=== PATIENT | female | born 1940 ===

== ENCOUNTER 2016-11-03 12:47 | Observation (INO) | payer MEDICARE, OTHER ==
[2016-11-03 12:47] VITALS: BMI 27.2
--- NOTE | 2016-11-03 13:11 | C.PDOC ---
History Of Present Illness Patient is a 76 year old female who presents to the ER with a complaint of near syncopal episodes for the past 3 weeks. Patient states she saw PMD 10 days ago for same complaint where she had various tests done but does not know the results or what the tests were. Patient decribes her dizziness as lightheadedness as if she was going to pass out. Patient reports a PMHx of vertigo but states this does not feel like a vertigo episode. Patient also reports a frontal/bilateral temporal headache. Denies SOB, chest pain, fever, stiff neck, falling, numbness, or weakness. Time Seen by Provider: 11/03/16 13:01 Chief Complaint (Nursing): Dizziness/Lightheaded History Per: Patient History/Exam Limitations: no limitations Onset/Duration Of Symptoms: Days (3 weeks) Current Symptoms Are (Timing): Still Present Past Medical History Reviewed: Historical Data, Nursing Documentation, Vital Signs Vital Signs: Last Vital Signs Temp 98.4 F 11/03/16 17:11 Pulse 90 11/03/16 17:11 Resp 20 11/03/16 17:11 BP 153/87 H 11/03/16 17:11 Pulse Ox 95 11/03/16 17:11 - Medical History PMH: Arthritis, CVA, HTN, Hypercholesterolemia Surgical History: No Surg Hx Family History: States: Unknown Family Hx - Social History Hx Alcohol Use: No Hx Substance Use: No Review Of Systems Constitutional: Negative for: Fever, Weakness ENT: Negative for: Other (Stiff Neck) Cardiovascular: Positive for: Light Headedness. Negative for: Chest Pain Respiratory: Negative for: Shortness of Breath Neurological: Positive for: Headache, Dizziness. Negative for: Weakness, Numbness Physical Exam - Physical Exam Additional Physical Exam Comments: Constitutional: No acute distress. Head: Normocephalic. Atraumatic. Eyes: PERRL. ENT: Moist mucous membranes. Neck: Supple. Cardiovascular: Regular rate. Radial pulse 2+ bilaterally. Chest: No tenderness. Respiratory: Clear to auscultation bilaterally. GI: Soft. Nontender. Nondistended. Back: No CVA tenderness. Musculoskeletal: No tenderness or swelling of extremities. Skin: No rash. Neurologic: Alert, no focal deficit. ED Course And Treatment - Laboratory Results Result Diagrams: 11/03/16 14:11 11/03/16 14:11 Interpretation Of ECG: No ST/T elevation. Normal intervals. O2 Sat by Pulse Oximetry: 98 (Room air) Medical Decision Making Medical Decision Making: Blood work, EKG, CXR, and CT of head w/o contrast ordered. EKG results: NSR, 99 bpm, no ST/T elevation, normal intervals. CT results: FINDINGS: HEMORRHAGE: No intracranial hemorrhage. BRAIN: Moderate to significant chronic appearing periventricular white matter chronic white matter ischemic changes extending peripherally into the deep and subcortical white matter both cerebral hemispheres. Changes are most conspicuous in the frontal regions. In addition, there is extension of these changes into the white matter tracts of both basal nuclei. Scattered more discrete bilateral basal nuclei lacunar type infarcts also felt to be present. Moderate generalized volume loss. Vascular calcifications are present VENTRICLES: No obstructive hydrocephalus CALVARIUM: Unremarkable. PARANASAL SINUSES: Minor mucosal thickening within the ethmoid air complex the MASTOID AIR CELLS: Unremarkable as visualized. No inflammatory changes. OTHER FINDINGS: None. IMPRESSION: No acute intracranial hemorrhage. Moderate to significant chronic white matter ischemic changes with scattered chronic bilateral basal nuclei lacunar infarcts Patient with UTI, started on Cipro by inpatient team. Dr. Funez accepts patient to his service for telemetry observation. Disposition Discussed With : Marcelo Funez Doctor Will See Patient In The: ED - Disposition Disposition: HOSPITALIZED Disposition Time: 15:22 Condition: FAIR - Clinical Impression Clinical Impression: Near syncope - Scribe Statement The provider has reviewed the documentation as recorded by the Scribe Pablo Armijo All medical record entries made by the Scribbaljeet were at my direction and personally dictated by me. I have reviewed the chart and agree that the record accurately reflects my personal performance of the history, physical exam, medical decision making, and the department course for this patient. I have also personally directed, reviewed, and agree with the discharge instructions and disposition.
[2016-11-03 14:13] LABS: RBC URINE 1 /hpf (0-3); URINE BACTERIA RARE (<OCC); URINE BILIRUBIN NEGATIVE (NEGATIVE); URINE BLOOD NEGATIVE (NEGATIVE); URINE COLOR Straw (YELLOW); URINE GLUCOSE (UA) NORMAL (Normal); URINE KETONE NEGATIVE (NEGATIVE); URINE LEUKOCYTE ESTERASE 3+ Leu/uL (Negative); URINE PROTEIN NEGATIVE (NEGATIVE); URINE UROBILINOGEN NORMAL mg/dL (0.2-1.0); WBC URINE 24 /hpf (0-5)
[2016-11-03 14:16] LABS: BASO % 0.3 % (0.0-2.0); EOS % 0.4 % (0.0-4.0); HEMATOCRIT 43.4 % (34.0-47.0); LYMPH # 2.4 K/uL (1.0-4.3); LYMPH % 29.2 % (20.0-40.0); MEAN CELL VOLUME 91.9 fL (81.0-99.0); MEAN CORPUSCULAR HEMOGLOBIN 31.2 pg (27.0-31.0); MEAN CORPUSCULAR HGB CONC 33.9 g/dL (33.0-37.0); MEAN PLATELET VOLUME 8.2 fL (7.2-11.7); MONO # 0.9 K/uL (0.0-0.8); MONO % 10.4 % (0.0-10.0); RED CELL DISTRIBUTION WIDTH 13.1 % (11.5-14.5); WHITE BLOOD COUNT 8.2 K/uL (4.8-10.8)
[2016-11-03 14:22] LABS: CHLORIDE 101 mmol/L (98-107)
[2016-11-03 14:23] LABS: SODIUM 141 mmol/L (132-148)
[2016-11-03 14:25] LABS: ALB/GLOB RATIO 1.3 (1.0-2.1); ALKALINE PHOSPHATASE 74 U/L (38-126); ALT/SGPT 33 U/L (9-52); AST/SGOT 40 U/L (14-36); BILIRUBIN,TOTAL 0.5 mg/dL (0.2-1.3); BLOOD UREA NITROGEN 14 mg/dL (7-17); CARBON DIOXIDE 24 mmol/L (22-30); GFR AFRICAN-AMERICAN > 60; GLUCOSE,RANDOM 101 mg/dL (65-105); TOTAL PROTEIN 8.2 g/dL (6.3-8.3)
[2016-11-03 14:29] LABS: INR 1.1
--- NOTE | 2016-11-03 15:19 | CT ---
PROCEDURE: CT HEAD WITHOUT CONTRAST. HISTORY: headache COMPARISON: None available. TECHNIQUE: Axial computed tomography images were obtained through the head/brain without intravenous contrast. Radiation dose: Total exam DLP = 746.29mGy-cm. This CT exam was performed using one or more of the following dose reduction techniques: Automated exposure control, adjustment of the mA and/or kV according to patient size, and/or use of iterative reconstruction technique. FINDINGS: HEMORRHAGE: No intracranial hemorrhage. BRAIN: Moderate to significant chronic appearing periventricular white matter chronic white matter ischemic changes extending peripherally into the deep and subcortical white matter both cerebral hemispheres. Changes are most conspicuous in the frontal regions. In addition, there is extension of these changes into the white matter tracts of both basal nuclei. Scattered more discrete bilateral basal nuclei lacunar type infarcts also felt to be present. Moderate generalized volume loss. Vascular calcifications are present VENTRICLES: No obstructive hydrocephalus CALVARIUM: Unremarkable. PARANASAL SINUSES: Minor mucosal thickening within the ethmoid air complex the MASTOID AIR CELLS: Unremarkable as visualized. No inflammatory changes. OTHER FINDINGS: None. IMPRESSION: No acute intracranial hemorrhage. Moderate to significant chronic white matter ischemic changes with scattered chronic bilateral basal nuclei lacunar infarcts
--- NOTE | 2016-11-03 17:40 | RAD ---
HISTORY: near syncope COMPARISON: No prior. FINDINGS: LUNGS: Mild elevation right hemidiaphragm with mild right basilar atelectasis. Minimal left basilar atelectasis PLEURA: No significant pleural effusion identified, no pneumothorax apparent. CARDIOVASCULAR: Cardiomegaly. Ectatic uncoiled aorta OSSEOUS STRUCTURES: Degenerative changes both shoulder girdles VISUALIZED UPPER ABDOMEN: Normal. OTHER FINDINGS: None. IMPRESSION: Mild elevation right hemidiaphragm with mild right basilar atelectasis. Minimal left basilar atelectasis
[2016-11-03] MEDS ORDERED: Naphazoline-Pheniramine Ophth Soln OU PRN (22:00)
[2016-11-04 08:15] LABS: CHLORIDE 98 mmol/L (98-107); SODIUM 142 mmol/L (132-148)
[2016-11-04 08:16] LABS: POTASSIUM 4.4 mmol/L (3.6-5.2)
[2016-11-04 08:18] LABS: BLOOD UREA NITROGEN 17 mg/dL (7-17); CARBON DIOXIDE 28 mmol/L (22-30); CHOLESTEROL 187 mg/dL (0-199); GFR AFRICAN-AMERICAN > 60
[2016-11-04 08:19] LABS: GLUCOSE,RANDOM 106 mg/dL (65-105)
[2016-11-04 08:38] LABS: FREE T4 1.15 ng/dL (0.78-2.19)
[2016-11-04 08:52] LABS: THYROID STIMULATING HORMONE 0.24 mIU/L (0.46-4.68)
[2016-11-04] MEDS: Pantoprazole 40 mg EC Tab PO SCH (10:02)
[2016-11-04] MEDS: Multiple Vitamins Tab PO SCH (10:02)
[2016-11-04] MEDS: Enoxaparin 40 mg Syringe SC SCH (10:08)
--- NOTE | 2016-11-04 14:05 | CON ---
DATE: 11/04/2016 REASON FOR CONSULTATION: Dizziness. The patient is a 76-year-old female who has history of hypertension, history of 4 strokes in the past, the last one was 2 years ago according to the patient. The history was obtained via the omer lynn's daughter who interpreted the patient's complaints. The patient following the 4 strokes had no residual weakness or speech difficulty. The patient is unaware of any history of heart attack in the past. The patient has been experiencing dizziness for a few weeks, at times associated with palp itations. The patient denies any syncope or fall. The patient denies any retrosternal chest pain. SOCIAL HISTORY: Nonsmoker, nondrinker. MEDICATIONS: Antivert 25 mg q. 8 hours, aspirin 325 mg once a day, Cipro 250 mg twice a day, Cozaar 100 mg once a day, Crestor 20 mg once a day, hydrochlorothiazide 25 mg once a day, Lovenox 40 mg once a day, Norvasc 10 mg once a day, Protonix 40 mg once a day, Tenormin 50 mg daily. REVIEW OF SYSTEMS: No fever or chills. No vomiting or diarrhea. No chest pain. No productive coug h. PHYSICAL EXAMINATION: GENERAL: The patient is an elderly female who appears to be in good shape. VITAL SIGNS: Blood pressure 120/77, heart rate 87, temperature 98.2, respiration 18. HEENT: Normocephalic. NECK: No JVD. CHEST: Clear. HEART: S1, S2 regular. ABDOMEN: Soft. EXTREMITIES: No edema. LABORATORIES: On admission, SMA-7 is within normal limits. Two sets of troponins are negative. Tri glycerides are elevated at 165. The rest of the lipid profile is within normal limits. TSH level is below normal at 0.24. PT, PTT are within normal limits. Head CT scan without contrast: No acute intracranial hemorrhage, moderate to significant chronic whi te matter ischemic changes with scattered chronic bilateral basilar nuclei lacunar infarcts. EKG rev ealed sinus rhythm at rate of 99, cannot rule out old anterior wall myocardial infarction. ASSESSMENT: 1. Dizziness. 2. Occasional palpitation. 3. Hypertension. 4. History of multiple cerebrovascular accidents. 5. Hyperlipidemia. RECOMMENDATIONS: Continue aspirin 325 mg once a day, Cozaar at 100 mg once a day, subcutaneous Loven ox at 40 mg once a day, Norvasc at 10 mg once a day, Tenormin at 50 mg once a day. May discontinue h ydrochlorothiazide as dizziness is one of the side effects of hydrochlorothiazide. Obtain an echocar diogram and carotid Doppler. Continue telemetry monitoring. Anish Verde MD cc: [id number] TT: 11/04/2016 14:05:02 Confirmation # [id number] Dictation # [id number] en
--- NOTE | 2016-11-04 23:17 | CP.PCM.HP ---
History of Present Illness - History of Present Illness History of Present Illness: Manas complain: dizziness x 3 weeks HPI: Patient is a 76 year old female who presents to the ER with a complaint of near syncopal episodes for the past 3 weeks. Patient states she saw PMD 10 days ago for same complaint where she had various tests done but does not know the results or what the tests were. Patient decribes her dizziness as lightheadedness as if she was going to pass out. Patient reports a PMHx of vertigo but states this does not feel like a vertigo episode. Patient also reports a frontal/bilateral temporal headache. Denies SOB, chest pain, fever, stiff neck, falling, numbness, or weakness Present on Admission - Present on Admission Any Indicators Present on Admission: No Review of Systems - Review of Systems Systems not reviewed;Unavailable: Acuity of Condition - Constitutional Constitutional: Fatigue, Lethargy, Weakness. absent: As Per HPI, Anorexia, Chills, Daytime Sleepiness, Excessive Sweating, Fever, Frequent Falls, Headache , Increased Appetite, Malaise, Night Sweats, Snoring, Sleep Apnea, Weight Gain, Weight Loss, Other - EENT Eyes: absent: As Per HPI, Blind Spots, Blurred Vision, Change in Vision, Decreased Night Vision, Diplopia, Discharge, Dry Eye, Exophthalmos, Floaters, Irritation, Itchy Eyes, Loss of Peripheral Vision, Pain, Photophobia, Requires Corrective Lenses, Sees Flashes, Spots in Vision, Tunnel Vision, Other Visual Disturbances, Loss of Vision, Other Nose/Mouth/Throat: absent: As Per HPI, Epistaxis, Nasal Congestion, Nasal Discharge, Nasal Obstruction, Nasal Trauma, Nose Pain, Post Nasal Drip, Sinus Pain, Sinus Pressure, Bleeding Gums, Change in Voice, Dental Pain, Dry Mouth, Dysphagia, Halitosis, Hoarsness, Lip Swelling, Mouth Lesions, Mouth Pain, Odynophagia, Sore Throat, Throat Swelling, Tongue Swelling, Facial Pain, Neck Pain, Neck Mass, Other - Cardiovascular Cardiovascular: absent: As Per HPI, Acrocyanosis, Chest Pain, Chest Pain at Rest , Chest Pain with Activity, Claudication, Diaphoresis, Dyspnea, Dyspnea on Exertion, Edema, Irregular Heart Rhythm, Pain Radiating to Arm/Neck/Jaw, Leg Edema, Leg Ulcers, Lightheadedness, Orthopnea, Palpitations, Paroxysmal Nocturnal Dyspnea, Pedal Edema, Radiating Pain, Rapid Heart Rate, Slow Heart Rate, Syncope, Other - Respiratory Respiratory: absent: As Per HPI, Cough, Dyspnea, Hemoptysis, Dyspnea on Exertion , Wheezing, Snoring, Stridor, Pain on Inspiration, Chest Congestion, Excessive Mucous Production, Change in Mucous Color, Pain with Coughing, Other - Gastrointestinal Gastrointestinal: absent: As Per HPI, Abdominal Pain, Belching, Bloating, Change in Bowel Habits, Change in Stool Character, Coffee Ground Emesis, Constipation, Cramping, Diarrhea, Dyspepsia, Dysphagia, Early Satiety, Excessive Flatus, Fecal Incontinence, Heartburn, Hematemesis, Hematochezia, Loose Stools, Melena, Nausea, Odynophagia, Temesmus, Vomiting, Other - Genitourinary Genitourinary: Urinary Frequency - Musculoskeletal Musculoskeletal: Muscle Weakness - Integumentary Integumentary: absent: As Per HPI, Acne, Alopecia, Bleeding Lesions, Change in Hair, Change in Nails, Change in Pigmentation, Changing Lesions, Dry Skin, Erythema, Furuncle, Hirsutism, Lesions, New Lesions, Non-Healing Lesions, Photosensitivity, Pruritus, Rash, Skin Pain, Skin Ulcer, Sores, Striae, Swelling , Unusual Bruising, Wounds, Jaundice, Other - Neurological Neurological: Dizziness. absent: As Per HPI, Abnormal Gait, Abnormal Hearing, Abnormal Movements, Abnormal Speech, Behavioral Changes, Burning Sensations, Confusion, Convulsions, Disequilibrium, Numbness, Focal Weakness, Frequent Falls , Headaches, Lack of Coordination, Loss of Vision, Memory Loss, Paresthesias, Radicular Pain, Restless Legs, Sensory Deficit, Syncope, Tingling, Tremor, Vertigo, Weakness, Other Visual Disturbances, Other Past Patient History - Infectious Disease Hx of Infectious Diseases: None - Past Medical History & Family History Past Medical History?: Yes - Past Social History Smoking Status: Never Smoked - CARDIAC Hx Hypercholesterolemia: Yes Hx Hypertension: Yes - PULMONARY Hx Respiratory Disorders: No - NEUROLOGICAL Hx Vertigo: Yes - HEENT Hx HEENT Problems: Yes Hx Cataracts: Yes (3yrs ago) Hx Glaucoma: Yes (3yrs ago) - RENAL Hx Chronic Kidney Disease: No - ENDOCRINE/METABOLIC Hx Endocrine Disorders: No - HEMATOLOGICAL/ONCOLOGICAL Hx Blood Disorders: No - INTEGUMENTARY Hx Dermatological Problems: No - MUSCULOSKELETAL/RHEUMATOLOGICAL Hx Arthritis: Yes - GASTROINTESTINAL Hx Gastrointestinal Disorders: No - GENITOURINARY/GYNECOLOGICAL Hx Genitourinary Disorders: No - PSYCHIATRIC Hx Substance Use: No - SURGICAL HISTORY Hx Surgeries: Yes Hx Appendectomy: Yes Hx Cataract Extraction: Yes Hx Cholecystectomy: Yes Hx Eye Surgery: Yes (bilateral eye) Hx Hysterectomy: Yes - ANESTHESIA Hx Anesthesia: Yes Hx Anesthesia Reactions: No Hx Malignant Hyperthermia: No Has any member of the family had a problem w/ anesthesia?: No Meds Home Medications: Home Medication List Medication Instructions Recorded Confirmed Type Aspirin 325 mg PO DAILY tab 11/06/16 Rx Losartan [Cozaar] 100 mg PO DAILY #30 tab 11/06/16 Rx Multivitamins [Hexavitamin] 1 tab PO DAILY tab 11/06/16 Rx amLODIPine [Norvasc] 10 mg PO DAILY tab 11/06/16 Rx Allergies/Adverse Reactions: Allergies Allergy/AdvReac Type Severity Reaction Status Date / Time No Known Allergies Allergy Verified 11/03/16 12:51 Physical Exam - Constitutional Appears: No Acute Distress - Head Exam Head Exam: ATRAUMATIC, NORMAL INSPECTION, NORMOCEPHALIC - Eye Exam Eye Exam: EOMI, Normal appearance, PERRL Pupil Exam: NORMAL ACCOMODATION, PERRL - ENT Exam ENT Exam: Mucous Membranes Moist, Normal Exam - Respiratory Exam Respiratory Exam: Clear to Auscultation Bilateral, NORMAL BREATHING PATTERN - Cardiovascular Exam Cardiovascular Exam: REGULAR RHYTHM, +S1, +S2 - GI/Abdominal Exam GI & Abdominal Exam: Normal Bowel Sounds, Soft. absent: Tenderness - Neurological Exam Neurological exam: Alert, CN II-XII Intact, Normal Gait, Oriented x3, Reflexes Normal - Psychiatric Exam Psychiatric exam: Normal Affect, Normal Mood Results - Vital Signs Recent Vital Signs: Last Vital Signs Temp 98.1 F 11/04/16 15:44 Pulse 63 11/04/16 16:27 Resp 18 11/04/16 15:44 BP 115/69 11/04/16 15:44 Pulse Ox 95 11/04/16 15:44 - Labs Result Diagrams: 11/03/16 14:11 11/04/16 07:56 Assessment & Plan (1) Dizziness Status: Acute (2) Dehydration Status: Acute (3) Near syncope Status: Acute (4) UTI (urinary tract infection) Status: Acute
--- NOTE | 2016-11-04 23:21 | CP.PCM.PN ---
Subjective - Date & Time of Evaluation Date of Evaluation: 11/04/16 Time of Evaluation: 09:53 - Subjective Subjective: Patient is seen and examined, Ct scan was done no acute changes, headache is there on and off. Denies SOB, chest pain, fever, stiff neck, falling, numbness, or weakness Objective - Vital Signs/Intake and Output Vital Signs (last 24 hours): Temp Pulse Resp BP Pulse Ox 98.1 F 63 18 115/69 95 11/04/16 15:44 11/04/16 16:27 11/04/16 15:44 11/04/16 15:44 11/04/16 15:44 Intake and Output: 11/04/16 11/05/16 18:59 06:59 Intake Total 400 Balance 400 - Medications Medications: Current Medications Amlodipine Besylate (Norvasc) 10 mg PO DAILY [facility] Last Admin: 11/04/16 11:00 Dose: 10 mg Aspirin (Aspirin) 325 mg PO DAILY [facility] Last Admin: 11/04/16 10:02 Dose: 325 mg Atenolol (Tenormin) 50 mg PO DAILY [facility] Last Admin: 11/04/16 10:00 Dose: 50 mg Ciprofloxacin (Cipro) 250 mg PO BID [facility] Last Admin: 11/04/16 17:04 Dose: 250 mg Enoxaparin Sodium (Lovenox) 40 mg SC DAILY [facility] Last Admin: 11/04/16 10:08 Dose: 40 mg Losartan Potassium (Cozaar) 100 mg PO DAILY [facility] Last Admin: 11/04/16 10:00 Dose: 100 mg Meclizine HCl (Antivert) 25 mg PO Q8 PRN PRN Reason: Dizziness Last Admin: 11/04/16 12:20 Dose: 25 mg Multivitamins (Hexavitamin) 1 tab PO DAILY [facility] Last Admin: 11/04/16 10:02 Dose: 1 tab Naphazoline HCl/Pheniramine Maleate (Naphcon-A Opht) 0 ml OU QID PRN PRN Reason: Dry eyes Pantoprazole Sodium (Protonix Ec Tab) 40 mg PO DAILY [facility] Last Admin: 11/04/16 10:02 Dose: 40 mg Rosuvastatin Calcium (Crestor) 20 mg PO HS [facility] Last Admin: 11/04/16 21:08 Dose: 20 mg - Labs Labs: PT 12.2 SECONDS (9.7-12.2) 11/03/16 14:11 INR 1.1 11/03/16 14:11 APTT 30 SECONDS (21-34) 11/03/16 14:11 - Constitutional Appears: No Acute Distress, Chronically Ill - Head Exam Head Exam: ATRAUMATIC, NORMAL INSPECTION, NORMOCEPHALIC - Eye Exam Eye Exam: EOMI, Normal appearance, PERRL Pupil Exam: NORMAL ACCOMODATION, PERRL - Respiratory Exam Respiratory Exam: Clear to Ausculation Bilateral, NORMAL BREATHING PATTERN - Cardiovascular Exam Cardiovascular Exam: REGULAR RHYTHM, +S1, +S2. absent: Murmur - GI/Abdominal Exam GI & Abdominal Exam: Soft, Normal Bowel Sounds. absent: Tenderness - Neurological Exam Neurological Exam: Alert, Awake, CN II-XII Intact, Normal Gait, Oriented x3 Assessment and Plan (1) Dizziness Status: Acute (2) Dehydration Status: Acute (3) Near syncope Status: Acute (4) UTI (urinary tract infection) Status: Acute
--- NOTE | 2016-11-05 10:01 | CARD ---
APPROVED REPORT EXAM: Two-dimensional and M-mode echocardiogram with Doppler and color Doppler. Other Information Quality : Technically LimitedRhythm : NSR INDICATION Dizziness and Vertigo Syncope RISK FACTORS Hypertension Hyperlipidemia M-Mode DIMENSIONS RVDd1.22 (2.1-3.2cm)Left Atrium (MM)2.66 (2.5-4.0cm) IVSd0.74 (0.7-1.1cm)Aortic Root2.43 (2.2-3.7cm) LVDd4.09 (4.0-5.6cm)Aortic Cusp Exc.1.25 (1.5-2.0cm) PWd0.70 (0.7-1.1cm)FS (%) 23 % LVDs3.13 (2.0-3.8cm)LVEF (%)55 (>50%) Aortic Valve AoV Peak Tsiwjshl583.9cm/Dafne Peak GR.10mmHgAI P 1/2 [id number] Mitral Valve MV E Rgplhhjc74.9cm/sMV A Jgrejutm857.6cm/sE/A ratio0.5 TDI E/Lateral E'0.0E/Medial E'0.0 Tricuspid Valve TR Peak Wxoskduy621cg/sTR Peak Gr.[id number] LEFT VENTRICLE The left ventricle is normal size. There is normal left ventricular wall thickness. The left ventricular function is normal. The left ventricular ejection fraction is within the normal range. There is normal LV segmental wall motion. Transmitral Doppler flow pattern is Grade I-abnormal relaxation pattern. RIGHT VENTRICLE The right ventricle is normal size. There is normal right ventricular wall thickness. The right ventricular systolic function is normal. ATRIA The left atrium size is normal. The right atrium size is normal. AORTIC VALVE The aortic valve is mildly thickened. There is mild aortic regurgitation. MITRAL VALVE The mitral valve is mildly thickened. TRICUSPID VALVE There is mild pulmonary hypertension. GREAT VESSELS The aortic root is normal in size. The IVC is normal in size and collapses >50% with inspiration. PERICARDIAL EFFUSION There is a trace loculated anterior pericardial effusion. <Conclusion> The left ventricle is normal size. There is normal left ventricular wall thickness. The left ventricular function is normal. The left ventricular ejection fraction is within the normal range. There is normal LV segmental wall motion. Transmitral Doppler flow pattern is Grade I-abnormal relaxation pattern. There is mild aortic regurgitation. There is mild pulmonary hypertension.
[2016-11-05] MEDS: Pantoprazole 40 mg EC Tab PO SCH (10:25)
[2016-11-05] MEDS: Multiple Vitamins Tab PO SCH (10:25)
[2016-11-05] MEDS: Enoxaparin 40 mg Syringe SC SCH (10:26)
--- NOTE | 2016-11-05 10:32 | PN ---
DATE: 11/05/2016 The patient denies any dizziness or palpitation. No reported arrhythmia. PHYSICAL EXAMINATION: VITAL SIGNS: Blood pressure 149/93, heart rate 93, temperature 97.7, respirations 20. HEENT: Normocephalic. NECK: No JVD. CHEST: Clear. HEART: S1, S2 regular. EXTREMITIES: No edema. Echocardiograph study revealed normal left ventricular size, wall thickness and ejection fraction, mi ld aortic insufficiency and mild pulmonary hypertension. ASSESSMENT: 1. Dizziness. 2. Recurrent cerebrovascular accident in the past, most recent one was 2 years ago. 3. Mild aortic insufficiency. 4. Mild pulmonary hypertension. 5. Uncontrolled systemic hypertension. RECOMMENDATIONS: Continue Norvasc at 10 mg once a day, Tenormin at 50 mg once a day, Cozaar at 100 m g once a day, aspirin at 325 mg once a day, Crestor at 20 mg once a day. Awaiting carotid Doppler. Anish Verde MD cc: [id number] TT: 11/05/2016 10:31:44 Confirmation # [id number] Dictation # [id number] en
--- NOTE | 2016-11-05 12:41 | MRI ---
PROCEDURE: MRI BRAIN WITHOUT CONTRAST HISTORY: syncope COMPARISON: Comparison is made to the previous CT of the head dated 11/03/2016 TECHNIQUE: Multiplanar, multisequence MR images of the brain were obtained without intravenous contrast enhancement. FINDINGS: HEMORRHAGE: None DWI: No evidence of an acute or early subacute infarction. BRAIN PARENCHYMA: There are scattered foci of encephalomalacia in the basal ganglia/stafford radiata suggestive of old small infarct. Gpno-tn-pqjvveib atrophy and moderate chronic microvascular white matter ischemic disease are also noted. VENTRICLES: Unremarkable. No hydrocephalus. CRANIUM: Unremarkable. ORBITS: Grossly unremarkable. PARANASAL SINUSES/MASTOIDS: Clear VASCULAR SYSTEM: Skull base flow voids intact. OTHER FINDINGS: None. IMPRESSION: No evidence of acute infarct or acute pathology in the brain. Small foci of encephalomalacia at the basal ganglia and stafford radiata likely due to old lacunar infarcts. Moderate atrophy and moderate chronic microvascular ischemic disease.
--- NOTE | 2016-11-05 14:45 | VASCLAB ---
PROCEDURE: HISTORY: syncope COMPARISON: None available. TECHNIQUE: Grayscale and duplex Doppler evaluation of the cervical carotid and vertebral arteries were performed. The common carotid, carotid bifurcations and cervical Internal Carotid Artery (ICA) and proximal External Carotid Artery (ECA) were evaluated. The vertebral arteries were evaluated for gross patency and flow direction. Report prepared by YOMI Flowers FINDINGS: RIGHT CAROTID ARTERIES: 1. Common Carotid Artery: No significant focal plaque formation of the right common carotid artery. Maximum Peak Systolic velocity: 66 cm/sec: End-diastolic velocity 16 cm/sec. 2. Carotid Bifurcation: Minimal calcific plaque formation. Maximum Peak Systolic velocity: 38 cm/sec: End-diastolic velocity 8 cm/sec. 3. Internal Carotid Artery: Plaque description: Minimal calcific 3.1. Proximal Segment: Peak systolic velocity 47 cm/sec: End-diastolic velocity 14 cm/sec - % stenosis 0-15% 3.2. Middle Segment: Peak systolic velocity 51 cm/sec: End-diastolic velocity 16 cm/sec - % stenosis 0-15% 3.3. Distal Segment: Peak systolic velocity 53 cm/sec: End-diastolic velocity 13 cm/sec - % stenosis 0-15% 4. External Carotid Artery: No significant focal plaque formation. Peak systolic velocity 74 cm/sec 5. ICA/CCA Ratio: 1.2 LEFT CAROTID ARTERIES: 1. Common Carotid Artery: No significant focal plaque formation of the left common carotid artery. Maximum Peak Systolic velocity: 60 cm/sec: End-diastolic velocity 14 cm/sec. 2. Carotid Bifurcation: Minimal calcific plaque formation. Maximum Peak Systolic velocity: 46 cm/sec: End-diastolic velocity 12 cm/sec. 3. Internal Carotid Artery: Plaque description: Minimal calcific 3.1. Proximal Segment: Peak systolic velocity 43 cm/sec: End-diastolic velocity 13 cm/sec - % stenosis 0-15% 3.2. Middle Segment: Peak systolic velocity 58 cm/sec: End-diastolic velocity 19 cm/sec - % stenosis 0-15% 3.3. Distal Segment: Peak systolic velocity 48 cm/sec: End-diastolic velocity 18 cm/sec - % stenosis 0-15% 4. External Carotid Artery: No significant focal plaque formation. Peak systolic velocity 46 cm/sec 5. ICA/CCA Ratio: 1.3 VERTEBRAL ARTERIES: 1. Right Vertebral Artery: The right vertebral artery flow direction is antegrade. 2. Left Vertebral Artery: The left vertebral artery flow direction is antegrade. OTHER FINDINGS: 1. Right Brachial Blood pressure: 150 mmHg. 2. Left Brachial Blood pressure: 140 mmHg. IMPRESSION: RIGHT: Duplex scan does not suggest hemodynamically significant stenosis of the right extracranial carotid arteries. LEFT: Duplex scan does not suggest hemodynamically significant stenosis of the left extracranial carotid arteries.
--- NOTE | 2016-11-05 18:08 | CARD ---
APPROVED REPORT EKG Measurement Heart [id number] <Conclusion> Normal sinus rhythm Minimal voltage criteria for LVH, may be normal variant Cannot rule out Anterior infarct, age undetermined Abnormal ECG
--- NOTE | 2016-11-06 00:29 | CP.PCM.PN ---
Subjective - Date & Time of Evaluation Date of Evaluation: 11/05/16 Time of Evaluation: 09:55 - Subjective Subjective: Pt seen and evaluated, less dizzy, feels better, occasinal nausea, pending neuro consult Objective - Vital Signs/Intake and Output Vital Signs (last 24 hours): Temp Pulse Resp BP Pulse Ox 98.1 F 65 18 132/77 98 11/05/16 15:24 11/05/16 15:40 11/05/16 15:24 11/05/16 15:24 11/05/16 15:24 Intake and Output: 11/05/16 11/06/16 18:59 06:59 Intake Total 500 Balance 500 - Medications Medications: Current Medications Amlodipine Besylate (Norvasc) 10 mg PO DAILY [facility] Last Admin: 11/05/16 10:25 Dose: 10 mg Aspirin (Aspirin) 325 mg PO DAILY [facility] Last Admin: 11/05/16 10:25 Dose: 325 mg Atenolol (Tenormin) 50 mg PO DAILY [facility] Last Admin: 11/05/16 10:25 Dose: 50 mg Ciprofloxacin (Cipro) 250 mg PO BID [facility] Last Admin: 11/05/16 17:26 Dose: 250 mg Enoxaparin Sodium (Lovenox) 40 mg SC DAILY [facility] Last Admin: 11/05/16 10:26 Dose: 40 mg Losartan Potassium (Cozaar) 100 mg PO DAILY [facility] Last Admin: 11/05/16 10:25 Dose: 100 mg Meclizine HCl (Antivert) 25 mg PO Q8 PRN PRN Reason: Dizziness Last Admin: 11/04/16 12:20 Dose: 25 mg Multivitamins (Hexavitamin) 1 tab PO DAILY [facility] Last Admin: 11/05/16 10:25 Dose: 1 tab Naphazoline HCl/Pheniramine Maleate (Naphcon-A Opht) 0 ml OU QID PRN PRN Reason: Dry eyes Pantoprazole Sodium (Protonix Ec Tab) 40 mg PO DAILY [facility] Last Admin: 11/05/16 10:25 Dose: 40 mg Rosuvastatin Calcium (Crestor) 20 mg PO HS [facility] Last Admin: 11/05/16 21:28 Dose: 20 mg - Labs Labs: PT 12.2 SECONDS (9.7-12.2) 11/03/16 14:11 INR 1.1 11/03/16 14:11 APTT 30 SECONDS (21-34) 11/03/16 14:11 - Constitutional Appears: Well - Head Exam Head Exam: ATRAUMATIC, NORMAL INSPECTION, NORMOCEPHALIC - Eye Exam Eye Exam: EOMI, Normal appearance, PERRL Pupil Exam: NORMAL ACCOMODATION, PERRL - Respiratory Exam Respiratory Exam: Clear to Ausculation Bilateral, NORMAL BREATHING PATTERN - Cardiovascular Exam Cardiovascular Exam: REGULAR RHYTHM, +S1, +S2. absent: Murmur - GI/Abdominal Exam GI & Abdominal Exam: Soft, Normal Bowel Sounds. absent: Tenderness - Neurological Exam Neurological Exam: Abnormal Gait, Alert, Awake, Oriented x3 Assessment and Plan (1) Dizziness Status: Acute (2) Dehydration Status: Acute (3) Near syncope Status: Acute (4) UTI (urinary tract infection) Status: Acute (5) Vertigo Assessment & Plan: most likely BPVV waiat neuro consult Status: Acute
[2016-11-06 01:12] VITALS: RESP 20
[2016-11-06] MEDS: Enoxaparin 40 mg Syringe SC SCH (09:35)
[2016-11-06] MEDS: Multiple Vitamins Tab PO SCH (09:35)
[2016-11-06] MEDS: Pantoprazole 40 mg EC Tab PO SCH (09:36)
--- NOTE | 2016-11-06 14:49 | PN ---
DATE: 11/06/2016 SUBJECTIVE: The patient denies any dizziness or palpitation. PHYSICAL EXAMINATION: VITAL SIGNS: Blood pressure 134/87, heart rate 98, temperature 97.5, respirations 20. HEENT: Normocephalic. NECK: No JVD. CHEST: Clear. HEART: S1, S2 regular. ABDOMEN: Soft. EXTREMITIES: No edema. LABORATORIES: Brain MRI report revealed no evidence of acute infarction or acute pathology, small fo ci of encephalomalacia at the basal ganglia and stafford radiata likely due to old lacunar infarcts. E chocardiographic study revealed normal left ventricular size, wall thickness, and ejection fraction, mild aortic insufficiency and mild pulmonary hypertension. ASSESSMENT: 1. Dizziness. 2. History of multiple lacunar infarcts in the past, most recent one according to the patient was 2 years ago. 3. Mild aortic insufficiency. 4. Mild pulmonary hypertension 5. Hypertension. RECOMMENDATIONS: Continue atenolol at 50 mg once a day, Norvasc at 10 mg once a day, Crestor at 20 m g once a day, aspirin at 325 mg once a day, Cozaar at 100 mg once a day. No further cardiac workup i s indicated. Anish Verde MD cc: [id number] TT: 11/06/2016 14:49:37 Confirmation # [id number] Dictation # [id number]
[2016-11-06 17:02] VITALS: BP 139/90; PULSE 68; TEMP 97.4; O2SAT 98
--- NOTE | 2016-11-06 17:13 | CP.PCM.PN ---
Subjective - Date & Time of Evaluation Date of Evaluation: 11/06/16 Time of Evaluation: 14:00 - Subjective Subjective: Pt seen an dexamined today , states dizziness improved , denies any chest pain, palpitations , lightheadedness, N/V No overnight events reported by RN Objective - Vital Signs/Intake and Output Vital Signs (last 24 hours): Temp Pulse Resp BP Pulse Ox 97.4 F L 68 20 139/90 98 11/06/16 15:13 11/06/16 15:13 11/06/16 15:13 11/06/16 15:13 11/06/16 15:13 Intake and Output: 11/06/16 11/06/16 06:59 18:59 Intake Total 120 Balance 120 - Medications Medications: Current Medications Amlodipine Besylate (Norvasc) 10 mg PO DAILY [facility] Last Admin: 11/06/16 09:36 Dose: 10 mg Aspirin (Aspirin) 325 mg PO DAILY [facility] Last Admin: 11/06/16 09:34 Dose: 325 mg Atenolol (Tenormin) 50 mg PO DAILY [facility] Last Admin: 11/06/16 09:36 Dose: 50 mg Ciprofloxacin (Cipro) 250 mg PO BID [facility] Last Admin: 11/06/16 09:35 Dose: 250 mg Enoxaparin Sodium (Lovenox) 40 mg SC DAILY [facility] Last Admin: 11/06/16 09:35 Dose: 40 mg Losartan Potassium (Cozaar) 100 mg PO DAILY [facility] Last Admin: 11/06/16 09:35 Dose: 100 mg Meclizine HCl (Antivert) 25 mg PO Q8 PRN PRN Reason: Dizziness Last Admin: 11/04/16 12:20 Dose: 25 mg Multivitamins (Hexavitamin) 1 tab PO DAILY [facility] Last Admin: 11/06/16 09:35 Dose: 1 tab Naphazoline HCl/Pheniramine Maleate (Naphcon-A Opht) 0 ml OU QID PRN PRN Reason: Dry eyes Pantoprazole Sodium (Protonix Ec Tab) 40 mg PO DAILY [facility] Last Admin: 11/06/16 09:36 Dose: 40 mg Rosuvastatin Calcium (Crestor) 20 mg PO HS [facility] Last Admin: 11/05/16 21:28 Dose: 20 mg - Labs Labs: PT 12.2 SECONDS (9.7-12.2) 11/03/16 14:11 INR 1.1 11/03/16 14:11 APTT 30 SECONDS (21-34) 11/03/16 14:11 Assessment and Plan - Assessment and Plan (Free Text) Assessment: A/P 76 yr old female admitted for near syncope / dizziness vss- stable troponin x 2 - negative echo - normal CT HEAD- No acute intracranial hemorrhage. Moderate to significant chronic white matter ischemic changes with scattered chronic bilateral basal nuclei lacunar infarcts MRI- No evidence of acute infarct or acute pathology in the brain. Small foci of encephalomalacia at the basal ganglia and stafford radiata likely due to old lacunar infarcts. Moderate atrophy and moderate chronic microvascular ischemic disease. Carotid doppler- negative EEG- result pending seen by Dr. Verde, cleared from cardiology stand point , no further work up needed As per Dr. Rubio pt can be discharge home today after EEG and f/u with Dr. Hurtado office D/W With Dr. Funez, stable for discharge home today and f/u witwh Dr. Funez office in 1 week Discharge plan discussed with patient , son and daughter at bed anjelica e, who understands and agree with plan Pt instructed to returns to ED if symptoms returns /or any other concerning symptoms
--- NOTE | 2016-11-07 01:11 | CP.PCM.DIS ---
Provider - Provider Date of Admission: 11/04/16 13:22 Attending physician: Marcelo Funez MD Time Spent in preparation of Discharge (in minutes): 30 Diagnosis - Discharge Diagnosis (1) Dizziness Status: Acute (2) Dehydration Status: Acute (3) Near syncope Status: Acute (4) UTI (urinary tract infection) Status: Acute (5) Vertigo Status: Acute Hospital Course - Lab Results Lab Results: Most Recent Lab Values WBC 8.2 K/uL (4.8-10.8) 11/03/16 14:11 RBC 4.72 Mil/uL (3.80-5.20) 11/03/16 14:11 Hgb 14.7 g/dL (11.0-16.0) 11/03/16 14:11 Hct 43.4 % (34.0-47.0) 11/03/16 14:11 MCV 91.9 fL (81.0-99.0) 11/03/16 14:11 MCH 31.2 pg (27.0-31.0) H 11/03/16 14:11 MCHC 33.9 g/dL (33.0-37.0) 11/03/16 14:11 RDW 13.1 % (11.5-14.5) 11/03/16 14:11 Plt Count 190 K/uL (130-400) 11/03/16 14:11 MPV 8.2 fL (7.2-11.7) 11/03/16 14:11 Neut % (Auto) 59.7 % (50.0-75.0) 11/03/16 14:11 Lymph % (Auto) 29.2 % (20.0-40.0) 11/03/16 14:11 Ritchie % (Auto) 10.4 % (0.0-10.0) H 11/03/16 14:11 Eos % (Auto) 0.4 % (0.0-4.0) 11/03/16 14:11 Baso % (Auto) 0.3 % (0.0-2.0) 11/03/16 14:11 Neut # 4.9 K/uL (1.8-7.0) 11/03/16 14:11 Lymph # 2.4 K/uL (1.0-4.3) 11/03/16 14:11 Ritchie # 0.9 K/uL (0.0-0.8) H 11/03/16 14:11 Eos # 0.0 K/uL (0.0-0.7) 11/03/16 14:11 Baso # 0.0 K/uL (0.0-0.2) 11/03/16 14:11 PT 12.2 SECONDS (9.7-12.2) 11/03/16 14:11 INR 1.1 11/03/16 14:11 APTT 30 SECONDS (21-34) 11/03/16 14:11 Sodium 142 mmol/L (132-148) 11/04/16 07:56 Potassium 4.4 mmol/L (3.6-5.2) 11/04/16 07:56 Chloride 98 mmol/L (98-107) 11/04/16 07:56 Carbon Dioxide 28 mmol/L (22-30) 11/04/16 07:56 Anion Gap 21 (10-20) H 11/04/16 07:56 BUN 17 mg/dL (7-17) 11/04/16 07:56 Creatinine 0.8 MG/DL (0.7-1.2) 11/04/16 07:56 Est GFR ( Amer) > 60 11/04/16 07:56 Est GFR (Non-Af Amer) > 60 11/04/16 07:56 POC Glucose (mg/dL) 103 mg/dL (65-110) 11/06/16 11:31 Random Glucose 106 mg/dL (65-105) H 11/04/16 07:56 Calcium 10.0 mg/dl (8.6-10.4) 11/04/16 07:56 Total Bilirubin 0.5 mg/dL (0.2-1.3) 11/03/16 14:11 AST 40 U/L (14-36) H D 11/03/16 14:11 ALT 33 U/L (9-52) 11/03/16 14:11 Alkaline Phosphatase 74 U/L (38-126) 11/03/16 14:11 Total Creatine Kinase 84 U/L (30-135) 11/03/16 14:11 CK-MB (Mass) 0.91 ng/mL (0.0-3.38) 11/03/16 14:11 Troponin I < 0.0120 ng/mL (0.00-0.120) 11/03/16 22:25 Total Protein 8.2 g/dL (6.3-8.3) 11/03/16 14:11 Albumin 4.6 g/dL (3.5-5.0) 11/03/16 14:11 Globulin 3.6 gm/dL (2.2-3.9) 11/03/16 14:11 Albumin/Globulin Ratio 1.3 (1.0-2.1) 11/03/16 14:11 Triglycerides 165 mg/dL (0-149) H 11/04/16 07:56 Cholesterol 187 mg/dL (0-199) 11/04/16 07:56 LDL Cholesterol Direct 102 mg/dL (0-129) 11/04/16 07:56 HDL Cholesterol 41 mg/dL (30-70) 11/04/16 07:56 Lipase 124 U/L (23-300) 11/03/16 14:11 Free T4 1.15 ng/dL (0.78-2.19) 11/04/16 07:56 TSH 3rd Generation 0.24 mIU/L (0.46-4.68) L 11/04/16 07:56 Urine Color Straw (YELLOW) 11/03/16 14:00 Urine Clarity Clear (Clear) 11/03/16 14:00 Urine pH 7.0 (5.0-8.0) 11/03/16 14:00 Ur Specific [place] 1.003 (1.003-1.030) 11/03/16 14:00 Urine Protein Negative mg/dL (NEGATIVE) 11/03/16 14:00 Urine Glucose (UA) Normal mg/dL (Normal) 11/03/16 14:00 Urine Ketones Negative mg/dL (NEGATIVE) 11/03/16 14:00 Urine Blood Negative (NEGATIVE) 11/03/16 14:00 Urine Nitrate Negative (NEGATIVE) 11/03/16 14:00 Urine Bilirubin Negative (NEGATIVE) 11/03/16 14:00 Urine Urobilinogen Normal mg/dL (0.2-1.0) 11/03/16 14:00 Ur Leukocyte Esterase 3+ Vinnie/uL (Negative) H 11/03/16 14:00 Urine WBC (Auto) 24 /hpf (0-5) H 11/03/16 14:00 Urine RBC (Auto) 1 /hpf (0-3) 11/03/16 14:00 Ur Squamous Epith Cells < 1 /hpf (0-5) 11/03/16 14:00 Urine Bacteria Rare (<OCC) 11/03/16 14:00 - Hospital Course Hospital Course: Pt seen an dexamined today , states dizziness improved , denies any chest pain, palpitations , lightheadedness, N/V No overnight events reported by RN pt is for discharge home Discharge Exam - Head Exam Head Exam: ATRAUMATIC, NORMAL INSPECTION, NORMOCEPHALIC - Eye Exam Eye Exam: EOMI, Normal appearance, PERRL Pupil Exam: NORMAL ACCOMODATION, PERRL - ENT Exam ENT Exam: Mucous Membranes Moist - Respiratory Exam Respiratory Exam: Clear to PA & Lateral, Rhonchi - Cardiovascular Exam Cardiovascular Exam: REGULAR RHYTHM, +S1, +S2 - GI/Abdominal Exam GI & Abdominal Exam: Normal Bowel Sounds Discharge Plan - Discharge Medications Prescriptions: Losartan [Cozaar] 100 mg PO DAILY #30 tab - Follow Up Plan Condition: FAIR Disposition: HOME/ ROUTINE Instructions: Losartan (By mouth), Urinary Tract Infection in Women (DC), Heart Healthy Diet (DC), Syncope (DC) Additional Instructions: f/u with Dr. Dee Dee rueda in 1 week f/u with Dr. Hurtado office in 1 week - call for appointment Continue medication as per Med. 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 Referrals: Kyree Hurtado MD [Staff Provider] -
--- NOTE | 2016-11-20 08:50 | EEG ---
DATE: 11/06/2016 The record is obtained for a history of near syncope, UTI, rule out seizures. The record was obtaine d while patient was awake and drowsy. The record was symmetrically equal on both sides with a veloci ty of 8 cycles per second. The waves are fairly formed, fairly organized with posterior distribution , moderate in amplitude, reactive to eye opening by attenuation. There are no abnormal discharges. No spike, no polyspike, no sharp wave, no focal slowing, no paroxysmal discharge. There were periods of drowsiness, during which attenuation and slowing of the record were seen and theta waves were see n. There were no periods of sleep. There were eye movement artifact, electrode artifact, and muscle movement artifacts. Photic stimulation was performed and did not produce any changes. Hyperventila tion was omitted. SUMMARY: This is a normal awake and drowsy electroencephalogram. Clinical correlation is recommende d. Charles Rubio MD cc: [id number] TT: 11/20/2016 07:51:55 Confirmation # [id number] Dictation # [id number]
== END 2016-11-06 16:30 | disposition home or self-care (01) ==
LOC: C.ER 12:47 → UNDOADMOB 15:39 → C.9E 15:39 → C.6T 16:03 → INTOOBSV 11-04 13:22 → OBSVTOIN 11-04 13:22 → UNDODISOB 11-06 16:30
PROVIDERS: ADMIT Internal Medicine; ATTEND Internal Medicine
DX: R55 Syncope and collapse (principal); G93.89 Other specified disorders of brain; I27.2 Other secondary pulmonary hypertension; N39.0 Urinary tract infection, site not specified; E86.0 Dehydration; I10 Essential (primary) hypertension; E78.00 Pure hypercholesterolemia, unspecified; M19.90 Unspecified osteoarthritis, unspecified site; R00.2 Palpitations; E78.5 Hyperlipidemia, unspecified; Z86.73 Personal history of transient ischemic attack (TIA), and cerebral infarction without residual deficits; I35.1 Nonrheumatic aortic (valve) insufficiency; Z79.82 Long term (current) use of aspirin; Z79.899 Other long term (current) drug therapy
CPT/HCPCS: 36415; 70450; 70551; 71010; 80048; 80053; 80061; 81001; 82550; 82553; 82948; 83690; 84439; 84443; 84484; 85025; 85610; 85730; 87086; 93005; 93306; 93880; 95812; 96372; 99285; G0378; J1650

== ENCOUNTER 2018-05-19 12:21 | Emergency (ER) | payer MEDICARE, OTHER ==
[2018-05-19 12:21] VITALS: BMI 27.2
[2018-05-19] MEDS ORDERED: Lidocaine 5% Patch TD STA (13:43)
[2018-05-19] MEDS ORDERED: Lidocaine 5% Patch TD ONE (13:53)
--- NOTE | 2018-05-19 14:13 | C.PDOC ---
History Of Present Illness 77 y/o female presents to the ED complaining of left shoulder and arm pain since September 2017, at which time she was admitted to the hospital for a stroke. Of note, patient had fallen during the stroke. MRI at that time showed multiple chronic injuries, which were never addressed. Patient reports taking Motrin and Tylenol with some relief. Currently she denies any new pain, new weakness, numbness, paresthesias, chest pain, or difficulty breathing. Time Seen by Provider: 05/19/18 13:30 Chief Complaint (Nursing): Upper Extremity Problem/Injury History Per: Patient History/Exam Limitations: no limitations Onset/Duration Of Symptoms: Days Current Symptoms Are (Timing): Still Present Past Medical History Reviewed: Historical Data, Nursing Documentation, Vital Signs Vital Signs: Last Vital Signs Temp 98.5 F 05/19/18 12:47 Pulse 88 05/19/18 12:47 Resp 16 05/19/18 12:47 BP 171/98 H 05/19/18 12:47 Pulse Ox 99 05/19/18 12:47 - Medical History PMH: Arthritis, CVA, HTN, Hypercholesterolemia Denies: Chronic Kidney Disease Surgical History: Appendectomy, Cholecystectomy Family History: States: Unknown Family Hx - Social History Hx Alcohol Use: No Hx Substance Use: No - Immunization History Hx Tetanus Toxoid Vaccination: No Hx Influenza Vaccination: Yes Hx Pneumococcal Vaccination: Yes Review Of Systems Constitutional: Negative for: Fever Cardiovascular: Negative for: Chest Pain, Palpitations Respiratory: Negative for: Shortness of Breath Musculoskeletal: Positive for: Shoulder Pain (left), Arm Pain (left) Skin: Negative for: Rash, Lesions Neurological: Negative for: Weakness, Numbness, Incoordination, Other (paresthesias) Physical Exam - Physical Exam Appears: Well, Non-toxic, No Acute Distress Skin: Warm, Dry, No Ecchymosis (or skin changes) Head: Atraumatic, Normacephalic Eye(s): bilateral: PERRL, EOMI Chest: Symmetrical Respiratory: No Accessory Muscle Use, Other (speaking in full sentences) Extremity: No Tenderness, Capillary Refill (less than 2 sec), No Deformity, No Swelling, Other (Decreased ROM secondary to pain) Pulses: Left Radial: Normal, Right Radial: Normal Neurological/Psych: Oriented x3, Normal Speech, Normal Motor, Normal Sensation, Other (No focal deficits) ED Course And Treatment O2 Sat by Pulse Oximetry: 99 (RA) Pulse Ox Interpretation: Normal Medical Decision Making Medical Decision Making: Impression: 77 y/o female with left shoulder and arm pain x 3 months Plan: Motrin and Tylenol given PO. Lidoderm patch applied. Patient advised to follow up with pain management for further evaluation of chronic pain. Disposition Counseled Patient/Family Regarding: Diagnosis, Need For Followup - Disposition Referrals: Tony Anne MD [Staff Provider] - Disposition: HOME/ ROUTINE Disposition Time: 14:22 Condition: STABLE Instructions: Rotator Cuff Injury Forms: [facility] (Amharic), General Discharge Instructions - POA Present On Arrival: None - Clinical Impression Clinical Impression: Shoulder pain, left - Scribe Statement The provider has reviewed the documentation as recorded by the Michelleibbaljeet Gonzalez Provider Attestation: All medical record entries made by the Michelleibbaljeet were at my direction and personally dictated by me. I have reviewed the chart and agree that the record accurately reflects my personal performance of the history, physical exam, medical decision making, and the department course for this patient. I have also personally directed, reviewed, and agree with the discharge instructions and disposition.
[2018-05-19 14:35] VITALS: BP 186/78; PULSE 59; RESP 18; TEMP 98; O2SAT 98
== END 2018-05-19 14:45 | disposition home or self-care (01) ==
LOC: C.ER 12:21
DX: M25.512 Pain in left shoulder (principal); I10 Essential (primary) hypertension; Z86.73 Personal history of transient ischemic attack (TIA), and cerebral infarction without residual deficits

== ENCOUNTER 2018-06-20 16:08 | Inpatient (IN) | payer MEDICARE, OTHER ==
[2018-06-20 16:09] VITALS: BMI 27.2
--- NOTE | 2018-06-20 16:45 | C.PDOC ---
History Of Present Illness 77 y/o female with a PMHx of DM, HTN, and arthritis, brought in by EMS for evaluation of frequent falls and questionable stroke. Family states the patient has been having increased difficulty walking and has not been able to fully lift her left arm since yesterday, prompting concern for unilateral weakness. On arrival patient is AAOx3, responsive to questions, able to move all extremities. She complains of left shoulder pain and difficulty extending the arm. Associated with nausea and some brief chest pain this morning, which resolved on its own. Otherwise she denies any vomiting, cold sweats, palpitations, dizziness, fever, visual loss, facial droop, or slurred speech. Time Seen by Provider: 06/20/18 16:24 Chief Complaint (Nursing): Weakness/Neurological Deficit History Per: Family History/Exam Limitations: no limitations Onset/Duration Of Symptoms: Days Current Symptoms Are (Timing): Still Present Exacerbating Factor(s): Movement Past Medical History Reviewed: Historical Data, Nursing Documentation, Vital Signs - Medical History PMH: Arthritis, Diabetes, HTN, Hypercholesterolemia Denies: Chronic Kidney Disease Surgical History: Appendectomy, Cholecystectomy Family History: States: Unknown Family Hx - Social History Hx Alcohol Use: No Hx Substance Use: No - Immunization History Hx Tetanus Toxoid Vaccination: No Hx Influenza Vaccination: Yes Hx Pneumococcal Vaccination: Yes Review Of Systems Except As Marked, All Systems Reviewed And Found Negative. Constitutional: Negative for: Fever, Chills, Sweats Eyes: Negative for: Vision Change Cardiovascular: Negative for: Chest Pain Respiratory: Negative for: Shortness of Breath Gastrointestinal: Positive for: Nausea. Negative for: Vomiting, Abdominal Pain, Diarrhea Skin: Negative for: Rash Neurological: Positive for: Weakness (generalized), Incoordination (difficulty walking secondary to weakness). Negative for: Numbness, Change in Speech, Confusion, Altered Mental Status, Headache, Dizziness, Other (facial droop) Physical Exam - Physical Exam Additional Physical Exam Comments: Constitutional: No acute distress. Head: Normocephalic. Atraumatic. Eyes: PERRL. EOMI. ENT: Moist mucous membranes. Neck: Supple. Cardiovascular: Regular rate. Radial pulse 2+ bilaterally. Chest: No tenderness. Respiratory: Clear to auscultation bilaterally. GI: Soft. Nontender. Nondistended. Back: No CVA tenderness. Musculoskeletal: Tenderness over the AC joint of left shoulder. Reproducible pain with left shoulder movement. Skin: No rash. Neurologic: AAOx3. Finger to nose, heel to lu, and rapid alternating movements normal. ED Course And Treatment - Laboratory Results Result Diagrams: 06/20/18 16:41 06/20/18 16:41 Medical Decision Making Medical Decision Making: Records reviewed: As per family, patient was admitted in October 2017 for a stroke, and has complained intermittently of left arm pain since. Reviewed October charts, patient was admitted for syncope no diagnosis of stroke on documentation. Chart states patient had syncopal episode and fell injuring the left arm. Initial Plan: --CMP --CK-MB --CPK --Troponin I --CBC --PTT/PT --Urinalysis --Urine culture --EKG --Chest X-Ray --Left Shoulder X-Ray --CT Head without contrast CT Head resulted: FINDINGS: HEMORRHAGE: No intracranial hemorrhage. BRAIN: Significant diffuse/confluent chronic white matter ischemic changes again seen extending peripherally into the deep and subcortical white matter both cerebral hemispheres.. There also appears to be extension of these changes into the white matter tracts of both basal nuclei. Scattered more discrete chronic bilateral basal nuclei lacunar type infarcts also felt to be present.. Note that the possibility of a small hyperacute infarct cannot be excluded on this exam Moderate generalized volume loss. Prominent prepontine cistern; the possibility of a incidental arachnoid cyst not completely excluded. Vascular calcifications both carotid siphons and vertebral arteries. VENTRICLES: Unremarkable. No hydrocephalus. CALVARIUM: Unremarkable. PARANASAL SINUSES: Moderate mucosal thickening seen in the left maxillary antrum as well as multiple is ethmoid air cells. There is also some extension of these opacification changes into the inferior margins of frontal sinus. MASTOID AIR CELLS: Unremarkable as visualized. No inflammatory changes. OTHER FINDINGS: Changes of bilateral cataract surgery again noted. IMPRESSION: No acute intracranial hemorrhage.. Significant diffuse/confluent chronic white matter ischemic changes again seen extending peripherally into the deep and subcortical white matter both cerebral hemispheres.. There also appears to be extension of these changes into the white matter tracts of both basal nuclei. Scattered more discrete chronic bilateral basal nuclei lacunar type infarcts also felt to be present.. Note t hat the possibility of a small hyperacute infarct cannot be excluded on this exam Moderate generalized volume loss. CXR resulted: FINDINGS: LUNGS: No acute consolidation.. Mild biapical pleural thickening. PLEURA: No significant pleural effusion identified, no pneumothorax apparent. CARDIOVASCULAR: Minor the aortic atherosclerotic calcification present. Cardiomegaly.. No pulmonary vascular congestion. OSSEOUS STRUCTURES: No significant abnormalities. VISUALIZED UPPER ABDOMEN: Normal. OTHER FINDINGS: None. IMPRESSION: No acute consolidation.. Mild biapical pleural thickening. Left shoulder xray: FINDINGS: BONES: No evidence of acute displaced fracture nor dislocation. The osseous structures appear intact. JOINTS: Degenerative osteoarthritis left acromioclavicular and glenohumeral joints. There are also calcifications seen within the soft tissues adjacent to the greater tuberosity consistent with of as above calcific tendinitis SOFT TISSUES: Prior OTHER FINDINGS: None. IMPRESSION: No acute fractures. DJD. Findings also consistent with calcific tendinitis Dr. Allison accepts patient to her service. Patient will require admission and likely rehab placement for frequent falls, unsafe at home. Disposition - Disposition Disposition: HOSPITALIZED Disposition Time: 17:57 Condition: FAIR - Clinical Impression Clinical Impression: Frequent falls, Decreased ambulation status - Scribe Statement The provider has reviewed the documentation as recorded by the Joselyn Gonzalez Provider Attestation: All medical record entries made by the Joselyn were at my direction and personally dictated by me. I have reviewed the chart and agree that the record accurately reflects my personal performance of the history, physical exam, medical decision making, and the department course for this patient. I have also personally directed, reviewed, and agree with the discharge instructions and disposition.
[2018-06-20 16:46] LABS: BASO # 0.1 K/uL (0.0-0.2); BASO % 0.4 % (0.0-2.0); EOS # 0.1 K/uL (0.0-0.7); EOS % 0.4 % (0.0-4.0); HEMOGLOBIN 14.5 g/dL (11.0-16.0); LYMPH # 3.3 K/uL (1.0-4.3); LYMPH % 23.3 % (20.0-40.0); MEAN CELL VOLUME 92.4 fL (81.0-99.0); MEAN CORPUSCULAR HEMOGLOBIN 31.8 pg (27.0-31.0); MEAN CORPUSCULAR HGB CONC 34.4 g/dL (33.0-37.0); MEAN PLATELET VOLUME 8.4 fL (7.2-11.7); MONO # 1.1 K/uL (0.0-0.8); MONO % 8.2 % (0.0-10.0); NEUT # 9.5 K/uL (1.8-7.0); NEUT % 67.7 % (50.0-75.0); NRBC % 0.1 % (0.0-2.0); RBC 4.55 Mil/uL (3.80-5.20); RED CELL DISTRIBUTION WIDTH 12.9 % (11.5-14.5)
[2018-06-20 16:56] LABS: INR 1.2; PROTHROMBIN TIME 12.9 SECONDS (9.7-12.2)
[2018-06-20 17:05] LABS: ALB/GLOB RATIO 1.2 (1.0-2.1); ALBUMIN 4.6 g/dL (3.5-5.0); ALT/SGPT 22 U/L (9-52); AST/SGOT 45 U/L (14-36); BLOOD UREA NITROGEN 18 mg/dL (7-17); GFR NON-AFRICAN AMERICAN > 60
--- NOTE | 2018-06-20 17:10 | RAD ---
Date of service: 06/20/2018 PROCEDURE: Radiographs of the Left Shoulder HISTORY: Tendinitis shoulder pain COMPARISON: Correlation made with prior radiographs right shoulder 09/02/2016. FINDINGS: BONES: No evidence of acute displaced fracture nor dislocation. The osseous structures appear intact. JOINTS: Degenerative osteoarthritis left acromioclavicular and glenohumeral joints. There are also calcifications seen within the soft tissues adjacent to the greater tuberosity consistent with of as above calcific tendinitis SOFT TISSUES: Prior OTHER FINDINGS: None. IMPRESSION: No acute fractures. DJD. Findings also consistent with calcific
[2018-06-20 17:11] LABS: CK-MB 1.22 ng/mL (0.0-3.38)
--- NOTE | 2018-06-20 17:13 | RAD ---
Date of service: 06/20/2018 HISTORY: Falls COMPARISON: Comparison chest 11/03/2016 FINDINGS: LUNGS: No acute consolidation.. Mild biapical pleural thickening. PLEURA: No significant pleural effusion identified, no pneumothorax apparent. CARDIOVASCULAR: Minor the aortic atherosclerotic calcification present. Cardiomegaly.. No pulmonary vascular congestion. OSSEOUS STRUCTURES: No significant abnormalities. VISUALIZED UPPER ABDOMEN: Normal. OTHER FINDINGS: None. IMPRESSION: No acute consolidation.. Mild biapical pleural thickening. .
--- NOTE | 2018-06-20 17:24 | CT ---
Date of service: 06/20/2018 PROCEDURE: CT HEAD WITHOUT CONTRAST. HISTORY: multiple falls COMPARISON: Comparison made with prior study 11/03/2016 changes bilateral TECHNIQUE: Axial computed tomography images were obtained through the head/brain without intravenous contrast. Radiation dose: Total exam DLP = 820.74 mGy-cm. This CT exam was performed using one or more of the following dose reduction techniques: Automated exposure control, adjustment of the mA and/or kV according to patient size, and/or use of iterative reconstruction technique. FINDINGS: HEMORRHAGE: No intracranial hemorrhage. BRAIN: Significant diffuse/confluent chronic white matter ischemic changes again seen extending peripherally into the deep and subcortical white matter both cerebral hemispheres.. There also appears to be extension of these changes into the white matter tracts of both basal nuclei. Scattered more discrete chronic bilateral basal nuclei lacunar type infarcts also felt to be present.. Note that the possibility of a small hyperacute infarct cannot be excluded on this exam Moderate generalized volume loss. Prominent prepontine cistern; the possibility of a incidental arachnoid cyst not completely excluded. Vascular calcifications both carotid siphons and vertebral arteries. VENTRICLES: Unremarkable. No hydrocephalus. CALVARIUM: Unremarkable. PARANASAL SINUSES: Moderate mucosal thickening seen in the left maxillary antrum as well as multiple is ethmoid air cells. There is also some extension of these opacification changes into the inferior margins of frontal sinus. MASTOID AIR CELLS: Unremarkable as visualized. No inflammatory changes. OTHER FINDINGS: Changes of bilateral cataract surgery again noted. IMPRESSION: No acute intracranial hemorrhage.. Significant diffuse/confluent chronic white matter ischemic changes again seen extending peripherally into the deep and subcortical white matter both cerebral hemispheres.. There also appears to be extension of these changes into the white matter tracts of both basal nuclei. Scattered more discrete chronic bilateral basal nuclei lacunar type infarcts also felt to be present.. Note that the possibility of a small hyperacute infarct cannot be excluded on this exam Moderate generalized volume loss.
[2018-06-20 17:50] LABS: SQUAMOUS EPITHIAL < 1 /hpf (0-5)
[2018-06-20 17:51] LABS: URINE BILIRUBIN NEGATIVE (NEGATIVE); URINE BLOOD 1+ (NEGATIVE); URINE CLARITY Clear (Clear); URINE COLOR Straw (YELLOW); URINE GLUCOSE (UA) NORMAL (Normal); URINE LEUKOCYTE ESTERASE NEG Leu/uL (Negative); URINE PROTEIN NEGATIVE (NEGATIVE); URINE UROBILINOGEN NORMAL mg/dL (0.2-1.0)
--- NOTE | 2018-06-20 18:27 | CP.PCM.HP ---
History of Present Illness - History of Present Illness History of Present Illness: weakness 77 year old female who brought to the ER by family due to weakness. PT states she has had difficutlty moving left arm and not able to ambulate due to left leg weakness. Pt has a PmHx: HTn hypercholesterolemai OA Present on Admission - Present on Admission Any Indicators Present on Admission: No History of DVT/PE: No History of Uncontrolled Diabetes: No Urinary Catheter: No Decubitus Ulcer Present: No (none present) Decubitus Ulcer Stage: Unstageable (none present) History Surgical Site Infection Following: None Review of Systems - Constitutional Constitutional: absent: Anorexia - Cardiovascular Cardiovascular: absent: Chest Pain, Dyspnea on Exertion - Respiratory Respiratory: absent: Cough, Hemoptysis, Pain on Inspiration - Gastrointestinal Gastrointestinal: absent: Abdominal Pain, Vomiting - Genitourinary Genitourinary: absent: Change in Urinary Stream, Freq UTI - Musculoskeletal Musculoskeletal: Abnormal Gait, Arthralgias, Numbness - Neurological Neurological: Abnormal Gait, Focal Weakness, Paresthesias - Psychiatric Psychiatric: absent: Confusion - Endocrine Endocrine: absent: Change in Body Appearance Past Patient History - Infectious Disease Hx of Infectious Diseases: None - Past Medical History & Family History Past Medical History?: Yes - Past Social History Smoking Status: Never Smoked - CARDIAC Hx Hypercholesterolemia: Yes Hx Hypertension: Yes - PULMONARY Hx Respiratory Disorders: No - NEUROLOGICAL Hx Neurological Disorder: Yes HX Cerebrovascular Accident: Yes (OCTOBER 2017, 2016, 5 YEARS AGO) - HEENT Hx HEENT Problems: Yes - RENAL Hx Chronic Kidney Disease: No - ENDOCRINE/METABOLIC Hx Endocrine Disorders: No - HEMATOLOGICAL/ONCOLOGICAL Hx Blood Disorders: No - INTEGUMENTARY Hx Dermatological Problems: No - MUSCULOSKELETAL/RHEUMATOLOGICAL Hx Arthritis: Yes - GASTROINTESTINAL Hx Gastrointestinal Disorders: No - GENITOURINARY/GYNECOLOGICAL Hx Genitourinary Disorders: No - PSYCHIATRIC Hx Substance Use: No - SURGICAL HISTORY Hx Appendectomy: Yes Hx Cholecystectomy: Yes - ANESTHESIA Hx Anesthesia: Yes Hx Anesthesia Reactions: No Hx Malignant Hyperthermia: No Meds Home Medications: Home Medication List Medication Instructions Recorded Confirmed Type Aspirin [Aspirin Chewable] 81 mg PO DAILY chew 06/26/18 Rx Azithromycin [Zithromax] 500 mg PO DAILY #4 tab 06/26/18 Rx Clopidogrel [Plavix] 75 mg PO DAILY tab 06/26/18 Rx Docusate Sodium/Sennosides A 1 tab PO DAILY tab 06/26/18 Rx [Senokot S 50 MG-8.6 MG] Docusate [Colace] 100 mg PO BID cap 06/26/18 Rx Enalapril Maleate [Vasotec] 10 mg PO DAILY tab 06/26/18 Rx Ergocalciferol [Drisdol 50,000 1 cap PO QWK cap 06/26/18 Rx Intl Units Cap] Famotidine [Pepcid] 20 mg PO DAILY tab 06/26/18 Rx Lidocaine 5% [Lidoderm] 1 ea TD DAILY PRN patch 06/26/18 Rx Rosuvastatin Calcium [Crestor] 20 mg PO HS tab 06/26/18 Rx amLODIPine [Norvasc] 5 mg PO Q12 tab 06/26/18 Rx levETIRAcetam [Keppra] 750 mg PO BID tab 06/26/18 Rx Allergies/Adverse Reactions: Allergies Allergy/AdvReac Type Severity Reaction Status Date / Time Penicillins Allergy Verified 05/19/18 12:47 SHRIMP Allergy Uncoded 05/19/18 12:47 Physical Exam - Constitutional Appears: Non-toxic - Eye Exam Eye Exam: EOMI - ENT Exam ENT Exam: Mucous Membranes Moist, Normal Exam - Respiratory Exam Respiratory Exam: Clear to Auscultation Bilateral, NORMAL BREATHING PATTERN. absent: Rales - Cardiovascular Exam Cardiovascular Exam: REGULAR RHYTHM, RRR, +S1, +S2. absent: JVD - GI/Abdominal Exam GI & Abdominal Exam: Normal Bowel Sounds, Soft. absent: Tenderness (left sided arm and leg weakness) Results - Vital Signs Recent Vital Signs: Last Vital Signs Temp 98.5 F 06/20/18 16:47 Pulse 88 06/20/18 17:42 Resp 18 06/20/18 17:42 BP 142/78 06/20/18 17:42 Pulse Ox 100 06/20/18 17:42 - Labs Result Diagrams: 06/25/18 22:02 06/26/18 12:18 Labs: Laboratory Results - last 24 hr 06/20/18 06/20/18 06/20/18 16:15 16:41 16:41 WBC 14.0 H D RBC 4.55 Hgb 14.5 Hct 42.1 MCV 92.4 MCH 31.8 H MCHC 34.4 RDW 12.9 Plt Count 228 MPV 8.4 Neut % (Auto) 67.7 Lymph % (Auto) 23.3 [place] % (Auto) 8.2 Eos % (Auto) 0.4 Baso % (Auto) 0.4 Neut # (Auto) 9.5 H Lymph # (Auto) 3.3 [place] # (Auto) 1.1 H Eos # (Auto) 0.1 Baso # (Auto) 0.1 PT INR APTT Sodium 129 L Potassium 4.2 Chloride 90 L Carbon Dioxide 26 Anion Gap 18 BUN 18 H Creatinine 0.9 Est GFR ( Amer) > 60 Est GFR (Non-Af Amer) > 60 POC Glucose (mg/dL) 113 H Random Glucose 114 H Calcium 10.0 Total Bilirubin 0.9 AST 45 H D ALT 22 Alkaline Phosphatase 87 Total Creatine Kinase 59 CK-MB (Mass) 1.22 Troponin I < 0.0120 Total Protein 8.4 H Albumin 4.6 Globulin 3.8 Albumin/Globulin Ratio 1.2 Urine Color Urine Clarity Urine pH Ur Specific [place] Urine Protein Urine Glucose (UA) Urine Ketones Urine Blood Urine Nitrate Urine Bilirubin Urine Urobilinogen Ur Leukocyte Esterase Urine WBC (Auto) Urine RBC (Auto) Ur Squamous Epith Cells 06/20/18 06/20/18 16:41 17:35 WBC RBC Hgb Hct MCV MCH MCHC RDW Plt Count MPV Neut % (Auto) Lymph % (Auto) [place] % (Auto) Eos % (Auto) Baso % (Auto) Neut # (Auto) Lymph # (Auto) [place] # (Auto) Eos # (Auto) Baso # (Auto) PT 12.9 H INR 1.2 APTT 40 H Sodium Potassium Chloride Carbon Dioxide Anion Gap BUN Creatinine Est GFR ( Amer) Est GFR (Non-Af Amer) POC Glucose (mg/dL) Random Glucose Calcium Total Bilirubin AST ALT Alkaline Phosphatase Total Creatine Kinase CK-MB (Mass) Troponin I Total Protein Albumin Globulin Albumin/Globulin Ratio Urine Color Straw Urine Clarity Clear Urine pH 6.0 Ur Specific [place] 1.004 Urine Protein Negative Urine Glucose (UA) Normal Urine Ketones Negative Urine Blood 1+ H Urine Nitrate Negative Urine Bilirubin Negative Urine Urobilinogen Normal Ur Leukocyte Esterase Neg Urine WBC (Auto) 1 Urine RBC (Auto) < 1 Ur Squamous Epith Cells < 1 Assessment & Plan - Assessment and Plan (Free Text) Assessment: focal weakness; admit to evaluate for possible cva physical therapy eval rehab eval MRi asa dvt and gi prophylaxis
[2018-06-20] MEDS ORDERED: Lidocaine 5% Patch TD PRN (18:30)
[2018-06-21 08:01] LABS: BASO % 0.5 % (0.0-2.0); EOS # 0.1 K/uL (0.0-0.7); EOS % 0.7 % (0.0-4.0); HEMOGLOBIN 13.8 g/dL (11.0-16.0); LYMPH # 2.5 K/uL (1.0-4.3); LYMPH % 30.3 % (20.0-40.0); MEAN CELL VOLUME 94.2 fL (81.0-99.0); MEAN CORPUSCULAR HEMOGLOBIN 32.8 pg (27.0-31.0); MEAN CORPUSCULAR HGB CONC 34.8 g/dL (33.0-37.0); MEAN PLATELET VOLUME 8.4 fL (7.2-11.7); MONO % 11.7 % (0.0-10.0); NEUT # 4.7 K/uL (1.8-7.0); NEUT % 56.8 % (50.0-75.0); NRBC % 0.1 % (0.0-2.0); RBC 4.22 Mil/uL (3.80-5.20); RED CELL DISTRIBUTION WIDTH 13.1 % (11.5-14.5); WHITE BLOOD COUNT 8.3 K/uL (4.8-10.8)
[2018-06-21 08:39] LABS: BLOOD UREA NITROGEN 17 mg/dL (7-17); CALCIUM 9.6 mg/dl (8.6-10.4); GFR NON-AFRICAN AMERICAN > 60
[2018-06-21] MEDS ORDERED: Home Med 1 UNIT (Ramipril [Altace] 5 MG) PO SCH (10:00)
[2018-06-21] MEDS ORDERED: Enoxaparin 40 mg Syringe SC SCH (10:00)
[2018-06-21] MEDS ORDERED: Ergocalciferol 50,000 Intl Units Cap PO SCH (10:00)
--- NOTE | 2018-06-21 11:12 | CP.PCM.PN ---
Subjective - Date & Time of Evaluation Date of Evaluation: 06/21/18 Time of Evaluation: 05:00 - Subjective Subjective: Pt co upset stomach with asa states she has she can not move left arm for 3 days also co left lower extremity weakness to the point that she has had difficulty ambulating Objective - Vital Signs/Intake and Output Vital Signs (last 24 hours): Temp Pulse Resp BP Pulse Ox 97.8 F 88 20 137/88 95 06/21/18 08:00 06/21/18 08:00 06/21/18 08:00 06/21/18 09:30 06/21/18 08:00 Intake and Output: 06/21/18 06/21/18 06:59 18:59 Intake Total 350 Balance 350 - Medications Medications: Current Medications Amlodipine Besylate (Norvasc) 5 mg PO Q12 [facility] Last Admin: 06/21/18 09:28 Dose: 5 mg Aspirin (Aspirin Chewable) 81 mg PO DAILY [facility] Last Admin: 06/21/18 09:27 Dose: 81 mg Enalapril Maleate (Vasotec) 10 mg PO DAILY [facility] Last Admin: 06/21/18 09:30 Dose: 10 mg Enoxaparin Sodium (Lovenox) 40 mg SC DAILY [facility] Last Admin: 06/21/18 09:29 Dose: 40 mg Ergocalciferol (Drisdol 50,000 Intl Units Cap) 1 cap PO QWK [facility] Last Admin: 06/21/18 09:29 Dose: 1 cap Lidocaine (Lidoderm) 1 ea TD DAILY PRN PRN Reason: Pain, moderate (4-7) Meclizine HCl (Antivert) 25 mg PO Q8 PRN PRN Reason: Dizziness Tramadol HCl (Ultram) 50 mg PO BID PRN PRN Reason: Pain, moderate (4-7) - Labs Labs: 06/21/18 07:52 06/21/18 07:52 PT 12.9 SECONDS (9.7-12.2) H 06/20/18 16:41 INR 1.2 06/20/18 16:41 APTT 40 SECONDS (21-34) H 06/20/18 16:41 - Constitutional Appears: Well, Non-toxic - Eye Exam Eye Exam: Normal appearance - ENT Exam ENT Exam: Mucous Membranes Moist - Respiratory Exam Respiratory Exam: Clear to Ausculation Bilateral Assessment and Plan - Assessment and Plan (Free Text) Assessment: acute cva htn hypercholesterolemia statin antiplatelet rehab
--- NOTE | 2018-06-21 13:13 | MRI ---
Date of service: 06/21/2018 PROCEDURE: MRI BRAIN WITHOUT CONTRAST HISTORY: left sided weakness COMPARISON: Noncontrast head CT from 06/20/2018. TECHNIQUE: Multiplanar, multisequence MR images of the brain were obtained without intravenous contrast enhancement. FINDINGS: HEMORRHAGE: None DWI: There are gyriform areas of restricted diffusion in the right occipital lobe. There are also multifocal areas of restricted diffusion in the right posterior parietal lobe, stafford radiata and centrum semiovale. BRAIN PARENCHYMA: There are severe chronic microangiopathic changes. There are old lacunar infarctions in the left very frontal white matter there is no mass, mass effect or abnormal extra-axial fluid collection. There is no territorial infarction. The midline sagittal structures are normal. VENTRICLES: There is moderate age-related global parenchymal volume loss and proportionate enlargement of the ventricles and cortical sulci. CRANIUM: There is normal bone marrow signal pattern. ORBITS: Grossly unremarkable. PARANASAL SINUSES/MASTOIDS: There is complete opacification of the right maxillary sinus and moderate mucosal thickening in the right frontal sinus and ethmoid air cells. There is a retention cyst/polyp in the left maxillary sinus the right mastoid air cells are underdeveloped. The left mastoid air cells are clear VASCULAR SYSTEM: There are normal signal voids in the larger intracranial arteries. OTHER FINDINGS: None. IMPRESSION: Multifocal acute infarctions right MCA and STAVE CUTTER territories as described above. Severe chronic microangiopathic changes and moderate age-related global parenchymal volume loss. Important findings were discussed with nurse Chin on the floor on 06/21/2018 at 1:05 p.m.
[2018-06-21] MEDS ORDERED: Enoxaparin 60 mg Syringe SC SCH (14:00)
[2018-06-21] MEDS ORDERED: Sodium Chloride 0.45% 1,000 ML IV SCH (14:30)
[2018-06-21] MEDS ORDERED: Dextrose 5%/0.9% NS 1,000 ML IV SCH (14:45)
--- NOTE | 2018-06-21 15:47 | MRI ---
Date of service: 06/21/2018 PROCEDURE: Magnetic Resonance Angiography Brain HISTORY: acute cva COMPARISON: None available. TECHNIQUE: 3D time of flight MR angiography of the intracranial arteries was performed. Rotating maximum intensity projection images were generated. FINDINGS: INTERNAL CAROTID ARTERIES: Unremarkable. The skull base, petrous, cavernous and supraclinoid segments are bilaterally widely patient. ANTERIOR CEREBRAL ARTERIES: Unremarkable. A1 and A2 segments are widely patent. Smaller distal branches unremarkable, as visualized. MIDDLE CEREBRAL ARTERIES: Unremarkable. M1 and M2 segments are widely patent. Perisylvian branches grossly symmetric. POSTERIOR CIRCULATION: Basilar Artery: There is short segment flow void in the proximal basilar artery and mild stenosis in the mid basilar artery. Distal Vertebral Arteries: Unremarkable. Posterior Cerebral Arteries: Unremarkable. Posterior Inferior Cerebellar Arteries: Unremarkable. ANEURYSM/ VASCULAR MALFORMATIONS: None. OTHER FINDINGS: None. 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 No evidence of significant stenosis or occlusion in the anterior circulation.
[2018-06-21] MEDS: Enoxaparin 60 mg Syringe SC SCH (23:18)
--- NOTE | 2018-06-22 05:25 | CON ---
DATE: 06/21/2018 ATTENDING PHYSICIAN: Abmer Allison MD REASON FOR CONSULTATION: Left-sided weakness that started the day before admission, which was as per the family. HISTORY: The patient is a 77-year-old Emirati-speaking lady with past medical history of diabetes mellitus, hypertension, arthritis, CVA. The patient was brought by the EMS because the family called because the patient has been unsteady and falling and having left-sided weakness since the day before admission and as per the granddaughter who is translating, the patient was complaining some weakness on the left side and was able to stand up and her arm was weak as well. On arrival to the emergency room, the patient was oriented, responsive to questions, moves all her extremities, was complaining of left shoulder pain and difficulty extending her arm associated with nausea and brief chest tightness and pain in the morning, which resolved in the emergency room. PAST MEDICAL HISTORY: As mentioned above. PAST SURGICAL HISTORY: Appendectomy and cholecystectomy. SOCIAL HISTORY: No smoker or ethanol abuser. ALLERGIES: ALLERGIC TO PENICILLIN AND SHRIMPS. REVIEW OF SYSTEMS: As per H and P and ER notes reviewed. PHYSICAL EXAMINATION: VITAL SIGNS: Blood pressure 158/89, pulse 76, respirations 20. NEUROLOGIC: Mental Status: The patient is alert, awake, partially oriented to place and person, partially to time, slow mental processing. Decreased attention span and short-term memory. Able to follow 2-step commands, having difficulty following 3-step commands. No aphasia or agnosia. No apraxia. Cranial nerves: Pupils 3 mm, bilaterally reactive, status post bilateral cataract surgery. Left central facial palsy. Decreased pinprick and light touch on the left side of the face. No dysarthria. No dysphagia. Slightly decreased gag. Motor: Left pronator drift. The patient is unable to lift her left arm against gravity more than one second. Approximately 2 to 3/5 on the left, distally 1 to 2. Left lower extremity: The patient is unable to lift her leg against gravity 2 to 3/5, proximal more than distal weakness. 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 Lower extremities: Right flexion 4/5. Knee and ankle 5/5. Deep tendon reflexes: 1 to 2 in upper and lower extremities, absent in the ankle, plantar flexion on the right, extensor on the left. Sensory: Decreased pinprick and light touch on the left side of the body, increasing to face. Coordination: [id number] unable to perform on the left side, on the right intact. DIAGNOSTIC DATA: MRI of the brain: I have reviewed the MRI. MRI is consistent with right occipital acute infarct and multiple scattered subcortical periventricular infarct in addition to old right subcortical infarct and left subcortical stafford radiata area of infarct in addition to severe periventricular white matter disease and atrophy. MRA of the brain consistent with severe artery stenosis with significant intracranial atherosclerotic disease. Labs reviewed. IMPRESSION: Right occipital cortical and subcortical parietal periventricular acute infarct, multiple possibilities, most likely small vessel disease, but embolic etiology cannot be excluded. The patient would need carotid Doppler, which is in progress and in addition to echocardiogram, Cardiology evaluation has been requested. The patient is currently on Plavix and aspirin 81 mg, intravenous hydration. Initially, I discontinued the blood pressure medication, but the patient's weakness started the day before yesterday. I will restart the medication, current blood pressure is 158/89. Speech and swallowing evaluation, physical therapy, deep venous thrombosis prophylaxis. The patient would need physical therapy at rehab. Above discussed with the family at length. All their questions and concerns were answered at length. Thanks for the consultation, and Dr. Hurtado will follow up the patient on Saturday. Kris Vasquez MD
[2018-06-22] MEDS ORDERED: Pantoprazole 40 mg EC Tab PO SCH (10:00)
[2018-06-22] MEDS: Enoxaparin 60 mg Syringe SC SCH (13:40)
[2018-06-22 14:24] LABS: HDL CHOLESTEROL 38 mg/dL (30-70)
[2018-06-22 14:35] LABS: LDL CHOLESTEROL 124 mg/dL (0-129)
--- NOTE | 2018-06-22 16:52 | CP.PCM.PN ---
Subjective - Date & Time of Evaluation Date of Evaluation: 06/22/18 Time of Evaluation: 16:54 - Subjective Subjective: PT reports feeling well no new issues passed swallow test Objective - Vital Signs/Intake and Output Vital Signs (last 24 hours): Temp Pulse Resp BP Pulse Ox 97.5 F L 86 20 154/62 H 96 06/22/18 07:00 06/22/18 09:01 06/22/18 07:00 06/22/18 13:38 06/22/18 07:00 Intake and Output: 06/22/18 06/22/18 06:59 18:59 Intake Total 400 Output Total 100 Balance 300 - Medications Medications: Current Medications Amlodipine Besylate (Norvasc) 5 mg PO Q12 [facility] Last Admin: 06/22/18 13:34 Dose: 5 mg Aspirin (Aspirin Chewable) 81 mg PO DAILY [facility] Last Admin: 06/22/18 13:34 Dose: 81 mg Clopidogrel Bisulfate (Plavix) 75 mg PO DAILY [facility] Last Admin: 06/22/18 13:34 Dose: 75 mg Enalapril Maleate (Vasotec) 10 mg PO DAILY [facility] Last Admin: 06/22/18 13:38 Dose: 10 mg Enoxaparin Sodium (Lovenox) 60 mg SC Q12 [facility] Last Admin: 06/22/18 13:40 Dose: 60 mg Ergocalciferol (Drisdol 50,000 Intl Units Cap) 1 cap PO QWK [facility] Last Admin: 06/21/18 09:29 Dose: 1 cap Famotidine (Pepcid) 20 mg PO DAILY [facility] Last Admin: 06/22/18 13:39 Dose: 20 mg Influenza Virus Vaccine (Fluzone Quad [id number]) 60 mcg IM .ONCE ONE Stop: 06/24/18 10:01 Lidocaine (Lidoderm) 1 ea TD DAILY PRN PRN Reason: Pain, moderate (4-7) Meclizine HCl (Antivert) 25 mg PO Q8 PRN PRN Reason: Dizziness Rosuvastatin Calcium (Crestor) 20 mg PO HS [facility] Last Admin: 06/21/18 23:18 Dose: 20 mg Tramadol HCl (Ultram) 50 mg PO BID PRN PRN Reason: Pain, moderate (4-7) - Labs Labs: 06/21/18 07:52 06/21/18 07:52 PT 12.9 SECONDS (9.7-12.2) H 06/20/18 16:41 INR 1.2 06/20/18 16:41 APTT 40 SECONDS (21-34) H 06/20/18 16:41 - Constitutional Appears: Well, Non-toxic - Eye Exam Eye Exam: Normal appearance - ENT Exam ENT Exam: Mucous Membranes Moist - Respiratory Exam Respiratory Exam: Clear to Ausculation Bilateral - Cardiovascular Exam Cardiovascular Exam: RRR, +S1, +S2. absent: JVD, Rubs - GI/Abdominal Exam GI & Abdominal Exam: Soft. absent: Tenderness - Neurological Exam Neuro motor strength exam: Left Upper Extremity: 0, Right Upper Extremity: 4, Left Lower Extremity: 3, Right Lower Extremity: 5 Assessment and Plan - Assessment and Plan (Free Text) Assessment: Acute CVA with APPLIQUER and MCA involvement neuro consulted on plavix discontinued asa bc patient could not tolerate bp monitor statin awating echo rehab PT passed swallow test
[2018-06-23] MEDS: Enoxaparin 60 mg Syringe SC SCH ×2 (02:11→13:09)
--- NOTE | 2018-06-23 13:29 | VASCLAB ---
Date of service: 06/23/2018 PROCEDURE: Carotid Duplex Exam. HISTORY: acute CVA COMPARISON: None available. TECHNIQUE: Grayscale and duplex Doppler evaluation of the cervical carotid and vertebral arteries were performed. The common carotid, carotid bifurcations and cervical Internal Carotid Artery (ICA) and proximal External Carotid Artery (ECA) were evaluated. The vertebral arteries were evaluated for gross patency and flow direction. Report prepared by Pablo Mandel, BS, RVT FINDINGS: RIGHT CAROTID ARTERIES: 1. Common Carotid Artery: No significant focal plaque formation of the right common carotid artery. Maximum Peak Systolic velocity: 58 cm/sec: End-diastolic velocity 11 cm/sec. 2. Carotid Bifurcation: Calcific plaque formation. Maximum Peak Systolic velocity: 60 cm/sec: End-diastolic velocity 12 cm/sec. 3. Internal Carotid Artery: Minimal plaque formation of the right proximal ICA which does not result in hemodynamically significant stenosis. Plaque description: Calcific 3.1. Proximal Segment: Peak systolic velocity 23 cm/sec: End-diastolic velocity 7 cm/sec - % stenosis 0-15% 3.2. Middle Segment: Peak systolic velocity 38 cm/sec: End-diastolic velocity 12 cm/sec - % stenosis 0-15% 3.3. Distal Segment: Peak systolic velocity 34 cm/sec: End-diastolic velocity 13 cm/sec - % stenosis 0-15% 4. External Carotid Artery: No significant focal plaque formation. Peak systolic velocity 174 cm/sec 5. ICA/CCA Ratio: 1.0 LEFT CAROTID ARTERIES: 1. Common Carotid Artery: No significant focal plaque formation of the left common carotid artery. Maximum Peak Systolic velocity: 59 cm/sec: End-diastolic velocity 13 cm/sec. 2. Carotid Bifurcation: Heterogeneous plaque formation. Maximum Peak Systolic velocity: 55 cm/sec: End-diastolic velocity 15 cm/sec. 3. Internal Carotid Artery: Minimal plaque formation of the left proximal ICA which does not result in hemodynamically significant stenosis. Plaque description: Heterogeneous 3.1. Proximal Segment: Peak systolic velocity 60 cm/sec: End-diastolic velocity 15 cm/sec - % stenosis 0-15% 3.2. Middle Segment: Peak systolic velocity 58 cm/sec: End-diastolic velocity 14 cm/sec - % stenosis 0-15% 3.3. Distal Segment: Peak systolic velocity 62 cm/sec: End-diastolic velocity 19 cm/sec - % stenosis 0-15% 4. External Carotid Artery: No significant focal plaque formation. Peak systolic velocity 58 cm/sec 5. ICA/CCA Ratio: 1.1 VERTEBRAL ARTERIES: 1. Right Vertebral Artery: The right vertebral artery flow direction is antegrade. 2. Left Vertebral Artery: The left vertebral artery flow direction is antegrade. OTHER FINDINGS: 1. Right Brachial Blood pressure: 154 mmHg. 2. Left Brachial Blood pressure: mmHg. 3. No atherosclerotic calcification present IMPRESSION: RIGHT: Duplex scan does not suggest hemodynamically significant stenosis of the right extracranial carotid arteries. LEFT: Duplex scan does not suggest hemodynamically significant stenosis of the left extracranial carotid arteries.
--- NOTE | 2018-06-23 15:06 | CP.PCM.PN ---
Subjective - Date & Time of Evaluation Date of Evaluation: 06/23/18 Time of Evaluation: 15:06 - Subjective Subjective: Pt reports feeling ok, but reports cough and congestion green thick sputum was able to walk with PT but reports left leg being very weak. Objective - Vital Signs/Intake and Output Vital Signs (last 24 hours): Temp Pulse Resp BP Pulse Ox 98.3 F 91 H 18 134/83 95 06/23/18 08:41 06/23/18 08:41 06/23/18 08:41 06/23/18 08:41 06/23/18 08:41 Intake and Output: 06/23/18 06/23/18 06:59 18:59 Intake Total 300 Output Total 500 200 Balance -200 -200 - Medications Medications: Current Medications Amlodipine Besylate (Norvasc) [address] [facility] Last Admin: 06/23/18 13:05 Dose: Not Given Aspirin (Aspirin Chewable) [address] [facility] Last Admin: 06/23/18 13:05 Dose: 81 mg Azithromycin (Zithromax) [address] [facility]; Protocol Stop: 06/26/18 10:01 Clopidogrel Bisulfate (Plavix) [address] [facility] Last Admin: 06/23/18 13:05 Dose: 75 mg Enalapril Maleate (Vasotec) [address] [facility] Last Admin: 06/23/18 13:09 Dose: Not Given Enoxaparin Sodium (Lovenox) [address] [facility] Last Admin: 06/23/18 13:09 Dose: 60 mg Ergocalciferol (Drisdol 50,000 Intl Units Cap) [address] [facility] Last Admin: 06/21/18 09:29 Dose: 1 cap Famotidine (Pepcid) [address] [facility] Last Admin: 06/23/18 13:06 Dose: 20 mg Influenza Virus Vaccine (Fluzone Quad [id number]) 60 mcg IM .ONCE ONE Stop: 06/24/18 10:01 Lidocaine (Lidoderm) 1 ea TD DAILY PRN PRN Reason: Pain, moderate (4-7) Meclizine HCl (Antivert) 25 mg PO Q8 PRN PRN Reason: Dizziness Rosuvastatin Calcium (Crestor) [address] [facility] Last Admin: 06/22/18 22:40 Dose: 20 mg - Labs Labs: 06/21/18 07:52 06/21/18 07:52 PT 12.9 SECONDS (9.7-12.2) H 06/20/18 16:41 INR 1.2 06/20/18 16:41 APTT 40 SECONDS (21-34) H 06/20/18 16:41 - Constitutional Appears: Well - Eye Exam Eye Exam: Normal appearance - ENT Exam ENT Exam: Mucous Membranes Moist - Respiratory Exam Respiratory Exam: Clear to Ausculation Bilateral - Cardiovascular Exam Cardiovascular Exam: REGULAR RHYTHM, RRR, +S1, +S2 (left upper extremity weakness). absent: JVD Assessment and Plan - Assessment and Plan (Free Text) Assessment: CVA: plavix statin bp control atherosclerosis of intracranial vessels bronchitis zpack awaiting for rehab
--- NOTE | 2018-06-23 17:51 | CARD ---
APPROVED REPORT Date of service: 06/23/2018 EXAM: Two-dimensional and M-mode echocardiogram with Doppler and color Doppler. INDICATION acute cva 2D DIMENSIONS IVSd0.9 (0.7-1.1cm)LVDd2.9 (3.9-5.9cm) PWd0.8 (0.7-1.1cm)LA Gkursm60 (18-58mL) LVDs1.6 (2.5-4.0cm)FS (%) 44.3 % LVEF (%)77.2 (>50%)LVEF (Finley's)72.49 % M-Mode DIMENSIONS Left Atrium (MM)2.65 (2.5-4.0cm)IVSd0.74 (0.7-1.1cm) Aortic Root2.93 (2.2-3.7cm)LVDd3.26 (4.0-5.6cm) Aortic Cusp Exc.1.90 (1.5-2.0cm)PWd0.86 (0.7-1.1cm) FS (%) 57 %LVDs1.40 (2.0-3.8cm) LVEF (%)88 (>50%) Aortic Valve AI P 1/2 [id number] Mitral Valve MV E Reyroayr91.5cm/sMV A Ockeoyhh793.9cm/sE/A ratio0.6 TDI Lateral E' Peak V5.38cm/sMedial E' Peak V2.16cm/sE/Lateral E'14.2 E/Medial E'35.4 Tricuspid Valve TR Peak Hwtjubny064bn/sTR Peak Gr.[id number] LEFT VENTRICLE The left ventricle is normal size. There is moderate concentric left ventricular hypertrophy. The left ventricular function is hyperdynamic. The left ventricular ejection fraction is about 75% No regional wall motion abnormalities noted. Transmitral Doppler flow pattern is Grade I-abnormal relaxation pattern. No left ventricle thrombus noted on this study. There is no ventricular septal defect visualized. There is no left ventricular aneurysm. There is no mass noted in the left ventricle. RIGHT VENTRICLE The right ventricle is normal size. There is normal right ventricular wall thickness. The right ventricular systolic function is normal. ATRIA The left atrium size is normal. The right atrium size is normal. The interatrial septum is intact with no evidence for an atrial septal defect. AORTIC VALVE The aortic valve is normal in structure and function. Mild aortic regurgitation is present. There is no aortic valvular stenosis. There is no aortic valvular vegetation. MITRAL VALVE The mitral valve is normal in structure and function. There is no evidence of mitral valve prolapse. There is no mitral valve stenosis. There is no mitral valve regurgitation noted. TRICUSPID VALVE The tricuspid valve is normal in structure and function. There is no tricuspid valve regurgitation noted. There is no tricuspid valve prolapse or vegetation. There is no tricuspid valve stenosis. PULMONIC VALVE The pulmonary valve is normal in structure and function. There is no pulmonic valvular regurgitation. There is no pulmonic valvular stenosis. GREAT VESSELS The aortic root is normal in size. The ascending aorta is normal in size. The pulmonary artery is normal. The IVC is normal in size and collapses >50% with inspiration. PERICARDIAL EFFUSION The pericardium appears normal. There is no pleural effusion. <Conclusion> Left ventricular function is hyperdynamic. Moderately increased wall thickness. Transmitral Doppler flow pattern is Grade I-abnormal relaxation pattern. Mild aortic regurgitation is present.
[2018-06-24] MEDS: Enoxaparin 60 mg Syringe SC SCH ×2 (01:44→14:38)
--- NOTE | 2018-06-24 07:21 | PN ---
DATE: 06/23/2018 TIME OF EVALUATION: 6:30 a.m. SUBJECTIVE: Neurological problem, left-sided weakness with visual disturbances. Vital signs, blood pressure 142/90, mean artery pressure of 107, respiratory rate 18, temperature 98.3, pulse rate 86. The patient was seen by Dr. Vasquez over the weekend for her new problem of left-sided weakness, losing balance and visual disturbances. Her symptoms are not progressive at present. She is still complaining of throat discomfort and left-sided weakness. The patient's examination, at present patient is awake, alert. Speech is somewhat normal. Communicable only in Italian. She follows two-step command, left sided mild agnosia. She could not able to move her left arm more than her legs. Some movement of toes and foot noted on her left side. Deep tendon reflexes are increased on her left side. Plantars are upgoing on both sides. Sensory examination grossly intact except mild distal sensory motor neuropathy. No cortical sensory loss. Finger-nose test is intact on the right side. 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 Her findings are consistent with radiological evidence of new ischemic process noted. The patient also showed multiple periventricular ischemic changes which is consistent with small vessel disease. However, the current problem is probably related to cardioembolic phenomenon. Further workup is recommended. I agree with current medication of dual antiplatelets with statin and angiotensin receptor blockers. The patient should be continued on DVT prophylaxis, physical therapy. Control her mean blood pressure, keep mean artery pressure around 100. Diabetic control has been discussed with her. The patient will be followed while she is in the hospital. Kyree Hurtado MD
[2018-06-24] MEDS ORDERED: Influenza Vaccine 60 MCG/0.5 ML SYR (3 yr & up) IM ONE (10:00)
--- NOTE | 2018-06-24 19:11 | CARD ---
APPROVED REPORT Date of service: 06/20/2018 EKG Measurement Heart [id number] <Conclusion> Sinus rhythm with premature atrial complexes Voltage criteria for left ventricular hypertrophy Abnormal ECG
[2018-06-25 00:02] VITALS: RESP 20
[2018-06-25] MEDS: Enoxaparin 60 mg Syringe SC SCH ×2 (01:39→14:32)
--- NOTE | 2018-06-25 06:26 | EEG ---
DATE: 06/23/2018 This is a 16-channel electroencephalogram of an awake and drowsy adult. During the study, photic stimulation was performed. Hyperventilation was not performed. The resting electroencephalogram consists of moderate voltage 6 to 8 Hz high theta mixed with low alpha activities seen at parietal and occipital leads. Anterior fast activity superimposed with 2 to 3 Hz delta activity seen. Intermittent movement and muscle artifact contaminated the background rhythm. There are paroxysmal activities noted at right temporoparietal occipital leads consistent with epileptiform focus. These activities were intermittently noted following with slow activities. Photic stimulation did not evoke driving response noted at 2 to 20 Hz. IMPRESSION: This is an abnormal electroencephalogram because of persistent slowing superimposed with paroxysmal activities at right temporoparietal leads consistent with epileptiform focus. Please correlate the finding with the neurological and radiological studies. Kyree Hurtado MD
--- NOTE | 2018-06-25 08:59 | PN ---
DATE: 06/25/2018 TIME OF EVALUATION: 07:10 a.m. NEUROLOGICAL PROBLEM: Right occipitoparietal infarct manifesting as left homonymous hemianopsia, left hemiparesis, arm more than her leg. The patient's symptoms have not progressed. She is stable at present. However, some motor functions are improved manifesting with left leg weakness is 4/5 at present. Her workup remained reviewed, carotid Doppler no significant stenosis. Electroencephalogram shows paroxysmal activities, however, affected right temporoparietal region consistent with epileptiform focus. RECOMMENDATION: Keppra is added for her seizures. Continue antiplatelet that she has been getting. She is a good candidate for acute rehabilitation. The patient will be followed while she is in the hospital. Kyree Hurtado MD TOMMIE
--- NOTE | 2018-06-25 13:26 | MRI ---
MRI left shoulder HISTORY: Shoulder pain. Comparison: X-ray dated 06/20/2018 Technique: Multi-echo multiplanar sequences were performed through the left shoulder without the use of intravenous contrast. Findings: 1.2 centimeter focal area of low attenuation seen at the distal supraspinatus tendon consistent with known calcific tendinopathy. In addition, there is fraying with increased signal seen within the distal supraspinatus tendon suggestive for partial bursal surface fraying and/or tearing with an associated moderate tendinopathy. Moderate distal infraspinatus tendinopathy. Teres minor tendon is preserved. Moderate distal subscapularis tendinopathy with articular surface fraying. Proximal portion of the long head of the biceps tendon is maintained within its normal anatomic position. Evaluation of the glenoid labrum demonstrates fraying with increased signal at the undersurface of the anterior labrum extending from superior to inferior consistent with a tear. Narrowing of the glenohumeral joint space with cartilage thinning and loss. Moderate acromioclavicular joint space degenerative changes with joint space narrowing, subchondral edema, and bony hypertrophy. 7 millimeter subchondral cyst formation noted within the anterior proximal humerus. Impression: 1. 1.2 centimeter focal area of low attenuation seen at the distal supraspinatus tendon consistent with known calcific tendinopathy. In addition, there is fraying with increased signal seen within the distal supraspinatus tendon suggestive for partial bursal surface fraying and/or tearing with an associated moderate tendinopathy. 2. Moderate distal infraspinatus tendinopathy. 3. Moderate distal subscapularis tendinopathy with articular surface fraying. 4. Evaluation of the glenoid labrum demonstrates fraying with increased signal at the undersurface of the anterior labrum extending from superior to inferior consistent with a tear. 5. Narrowing of the glenohumeral joint space with cartilage thinning and loss. 6. Moderate acromioclavicular joint space degenerative changes with joint space narrowing, subchondral edema, and bony hypertrophy. 7. 7 millimeter subchondral cyst formation noted within the anterior proximal humerus.
--- NOTE | 2018-06-25 17:19 | CP.PCM.PN ---
Subjective - Date & Time of Evaluation Date of Evaluation: 06/24/18 Time of Evaluation: 04:00 - Subjective Subjective: Pt reports feeling well +constipated no other issues Objective - Vital Signs/Intake and Output Vital Signs (last 24 hours): Temp Pulse Resp BP Pulse Ox 97.8 F 80 20 124/76 95 06/25/18 15:25 06/25/18 15:25 06/25/18 15:25 06/25/18 15:25 06/25/18 15:25 Intake and Output: 06/25/18 06/25/18 06:59 18:59 Intake Total 0 Balance 0 - Medications Medications: Current Medications Amlodipine Besylate (Norvasc) 5 mg PO Q12 [facility] Last Admin: 06/25/18 10:36 Dose: 5 mg Aspirin (Aspirin Chewable) 81 mg PO DAILY [facility] Last Admin: 06/25/18 10:36 Dose: 81 mg Azithromycin (Zithromax) 500 mg PO DAILY [facility]; Protocol Stop: 06/26/18 10:01 Last Admin: 06/25/18 10:36 Dose: 500 mg Clopidogrel Bisulfate (Plavix) 75 mg PO DAILY [facility] Last Admin: 06/25/18 10:36 Dose: 75 mg Docusate Sodium (Colace) 100 mg PO BID [facility] Last Admin: 06/25/18 10:36 Dose: 100 mg Enalapril Maleate (Vasotec) 10 mg PO DAILY [facility] Last Admin: 06/25/18 10:36 Dose: 10 mg Enoxaparin Sodium (Lovenox) 60 mg SC Q12H [facility] Last Admin: 06/25/18 14:32 Dose: 60 mg Ergocalciferol (Drisdol 50,000 Intl Units Cap) 1 cap PO QWK [facility] Last Admin: 06/21/18 09:29 Dose: 1 cap Famotidine (Pepcid) 20 mg PO DAILY [facility] Last Admin: 06/25/18 10:36 Dose: 20 mg Lactulose (Enulose) 30 gm PO DAILY PRN PRN Reason: Constipation Last Admin: 06/25/18 16:47 Dose: 30 gm Levetiracetam (Keppra) 500 mg PO BID [facility] Last Admin: 06/25/18 10:36 Dose: 500 mg Lidocaine (Lidoderm) 1 ea TD DAILY PRN PRN Reason: Pain, moderate (4-7) Meclizine HCl (Antivert) 25 mg PO Q8 PRN PRN Reason: Dizziness Rosuvastatin Calcium (Crestor) 20 mg PO HS [facility] Last Admin: 06/24/18 22:02 Dose: 20 mg Sodium Phosphate (Fleet Enema) 135 ml [place] ONCE ONE Stop: 06/25/18 17:19 - Labs Labs: 06/21/18 07:52 06/21/18 07:52 PT 12.9 SECONDS (9.7-12.2) H 06/20/18 16:41 INR 1.2 06/20/18 16:41 APTT 40 SECONDS (21-34) H 06/20/18 16:41 - Constitutional Appears: Well - Eye Exam Eye Exam: Normal appearance - ENT Exam ENT Exam: Mucous Membranes Moist - Respiratory Exam Respiratory Exam: Clear to Ausculation Bilateral - Cardiovascular Exam Cardiovascular Exam: REGULAR RHYTHM (left arm weakness no change). absent: JVD Assessment and Plan - Assessment and Plan (Free Text) Assessment: sp cva cont bp, plavix, statin awating for rehab placement
--- NOTE | 2018-06-25 17:23 | CP.PCM.PN ---
Subjective - Date & Time of Evaluation Date of Evaluation: 06/25/18 Time of Evaluation: 17:23 - Subjective Subjective: PT repors feeling well except for constipation just given lactulose by rn no chest pain or sob walks with therapyst Objective - Vital Signs/Intake and Output Vital Signs (last 24 hours): Temp Pulse Resp BP Pulse Ox 97.8 F 80 20 124/76 95 06/25/18 15:25 06/25/18 15:25 06/25/18 15:25 06/25/18 15:25 06/25/18 15:25 Intake and Output: 06/25/18 06/25/18 06:59 18:59 Intake Total 0 Balance 0 - Medications Medications: Current Medications Amlodipine Besylate (Norvasc) 5 mg PO Q12 [facility] Last Admin: 06/25/18 10:36 Dose: 5 mg Aspirin (Aspirin Chewable) 81 mg PO DAILY [facility] Last Admin: 06/25/18 10:36 Dose: 81 mg Azithromycin (Zithromax) 500 mg PO DAILY [facility]; Protocol Stop: 06/26/18 10:01 Last Admin: 06/25/18 10:36 Dose: 500 mg Clopidogrel Bisulfate (Plavix) 75 mg PO DAILY [facility] Last Admin: 06/25/18 10:36 Dose: 75 mg Docusate Sodium (Colace) 100 mg PO BID [facility] Last Admin: 06/25/18 10:36 Dose: 100 mg Enalapril Maleate (Vasotec) 10 mg PO DAILY [facility] Last Admin: 06/25/18 10:36 Dose: 10 mg Enoxaparin Sodium (Lovenox) 60 mg SC Q12H [facility] Last Admin: 06/25/18 14:32 Dose: 60 mg Ergocalciferol (Drisdol 50,000 Intl Units Cap) 1 cap PO QWK [facility] Last Admin: 06/21/18 09:29 Dose: 1 cap Famotidine (Pepcid) 20 mg PO DAILY [facility] Last Admin: 06/25/18 10:36 Dose: 20 mg Lactulose (Enulose) 30 gm PO DAILY PRN PRN Reason: Constipation Last Admin: 06/25/18 16:47 Dose: 30 gm Levetiracetam (Keppra) 500 mg PO BID [facility] Last Admin: 06/25/18 10:36 Dose: 500 mg Lidocaine (Lidoderm) 1 ea TD DAILY PRN PRN Reason: Pain, moderate (4-7) Meclizine HCl (Antivert) 25 mg PO Q8 PRN PRN Reason: Dizziness Rosuvastatin Calcium (Crestor) 20 mg PO HS [facility] Last Admin: 06/24/18 22:02 Dose: 20 mg - Labs Labs: 06/21/18 07:52 06/21/18 07:52 PT 12.9 SECONDS (9.7-12.2) H 06/20/18 16:41 INR 1.2 06/20/18 16:41 APTT 40 SECONDS (21-34) H 06/20/18 16:41 - Constitutional Appears: Well, Non-toxic - Eye Exam Eye Exam: Normal appearance - ENT Exam ENT Exam: Mucous Membranes Moist - Respiratory Exam Respiratory Exam: Clear to Ausculation Bilateral - Cardiovascular Exam Cardiovascular Exam: REGULAR RHYTHM Assessment and Plan - Assessment and Plan (Free Text) Assessment: cva; no changed constipation; lactuose fleet enema will get tsh bp controlled bronchtis zpack awating for rehab
[2018-06-25] MEDS ORDERED: Sodium Chloride 0.9% 1,000 ML IV SCH (22:00)
[2018-06-25 22:14] LABS: BASO % 0.5 % (0.0-2.0); EOS % 0.3 % (0.0-4.0); HEMOGLOBIN 14.3 g/dL (11.0-16.0); LYMPH # 4.8 K/uL (1.0-4.3); LYMPH % 46.5 % (20.0-40.0); MEAN CELL VOLUME 93.4 fL (81.0-99.0); MEAN CORPUSCULAR HEMOGLOBIN 31.9 pg (27.0-31.0); MEAN CORPUSCULAR HGB CONC 34.2 g/dL (33.0-37.0); MEAN PLATELET VOLUME 7.7 fL (7.2-11.7); MONO # 1.1 K/uL (0.0-0.8); MONO % 10.4 % (0.0-10.0); NEUT # 4.4 K/uL (1.8-7.0); NEUT % 42.3 % (50.0-75.0); RBC 4.46 Mil/uL (3.80-5.20); RED CELL DISTRIBUTION WIDTH 12.8 % (11.5-14.5); WHITE BLOOD COUNT 10.4 K/uL (4.8-10.8)
[2018-06-26] LABS: ALB/GLOB RATIO 1.1 (1.0-2.1); ALBUMIN 4.3 g/dL (3.5-5.0); ALT/SGPT 59 U/L (9-52); AST/SGOT 56 U/L (14-36); BLOOD UREA NITROGEN 17 mg/dL (7-17); CALCIUM 9.8 mg/dl (8.6-10.4); GFR NON-AFRICAN AMERICAN > 60
--- NOTE | 2018-06-26 00:01 | PCM.RRT ---
<Rayo Jolley - Last Filed: 06/25/18 23:54> CORPORATE TRAVEL EXPERT Nurses Assessment - Situation Date: 06/25/18 Time [employer]PORATE TRAVEL EXPERT was called: 21:28 [employer]PORATE TRAVEL EXPERT Responder Arrival Time:: 21:29 [employer]PORATE TRAVEL [employer] Location:: Med/Surg [employer] Reason for Call: Change in Mental Status - IV IV Inserted during CORPORATE TRAVEL EXPERT?: No - Respiratory [employer] TRAVEL [employer] Delivery Method: Nasal Cannula @L/min (3L) - Diagnostic Test Ordered EKG: No Chest X-Ray: No CT Scan: No - Stat Labs Ordered [employer]PORATE TRAVEL EXPERT Stat Labs Ordered: CBC, BMP, TROPONIN CPR started during CORPORATE TRAVEL EXPERT?: No I.Reason for CORPORATE TRAVEL EXPERT - A) Acute Change in Patient: (Select all that apply): Staff member or family is worried about patient - Neurological Status (Select all that apply): Alert, Responsive, Oriented, Verbal, Follows Commands, Weakness. absent: Disoriented, Aggressive - Respiratory Oxygen Delivery Method: Nasal Cannula @L/min - Constitutional Appears: Non-toxic, No Acute Distress - Head Head Exam: ATRAUMATIC, NORMAL INSPECTION, NORMOCEPHALIC - Eyes Eye Exam: EOMI, Normal appearance - Respiratory Exam Respiratory Exam: Clear to Ausculation Bilateral, NORMAL BREATHING PATTERN. absent: Rales, Rhonchi, Wheezes - Cardiovascular Exam Cardiovascular Exam: REGULAR RHYTHM, +S1, +S2 - GI/Abdominal Exam GI & Abdominal Exam: Soft, Normal Bowel Sounds. absent: Distended, Guarding, Tenderness - Neurological Exam Neurological Exam: Alert, Awake, Oriented x3 - Extremities Exam Extremities Exam: Normal Inspection Plan - Assessment of Findings&Treatment Plan [employer]PORATE TRAVEL EXPERT note Rapid response called at 21:28 for patient 670B for unresponsiveness after having multiple loose bowel movements. Patient was taken to the bed, but was easily arousable, able to respond to questions. Patient complains of weakness, dizziness and nausea, but denies chest pain, shortness of breath, headaches or vomiting. Denies blood in the stools. Vitals at arrival t 97.8, HR 88 BP 155/95 98% on 3L NC. Physical exam unremarkable. Patient is AAOx3. Family at bedside states she had been constipated for 6 days and has been receiving treatment for constipation in hospital. Zofran 4mg IVP Administered. EKG unremarkable. CBC, CMP troponin ordered. Fluids NS @100cc started. Vitals rechecked, read as follow: 131/85, HR 90 T 97.6 100% RA. Attending to be notified. End of Rapid at 21:45. <David Covington - Last Filed: 06/26/18 07:08> Attending/Attestation - Attestation I have personally seen and examined this patient.: Yes I have fully participated in the care of the patient.: Yes I have reviewed all pertinent clinical information, including history, physical exam and plan: Yes Notes (Text): 06/26/18 07:05 * Patient got exhausted due to recurrent BM post laxative treatment, near syncope, on the comode, not vasogal as not noticed on the tele, started on IVF, VS stable, EKG NSR, ordered labs to check electrolytes. She c/o being dizzy at time of CORPORATE TRAVEL EXPERT, with vomiting, no vertigo, patient had h/o left sided paralysis. PMD notified.
[2018-06-26] MEDS: Enoxaparin 60 mg Syringe SC SCH ×2 (01:03→14:50)
[2018-06-26 09:11] VITALS: O2SAT 97
[2018-06-26] MEDS ORDERED: Docusate-Senna 50 mg-8.6 mg Tab PO SCH (10:00)
--- NOTE | 2018-06-26 10:48 | CARD ---
APPROVED REPORT Date of service: 06/25/2018 EKG Measurement Heart [id number] <Conclusion> Normal sinus rhythm Possible Left atrial enlargement Left axis deviation Left ventricular hypertrophy Cannot rule out Septal infarct, age undetermined Abnormal ECG
--- NOTE | 2018-06-26 11:20 | PN ---
DATE: 06/26/2018 TIME OF EVALUATION: 06:55 a.m. 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 The patient is seen in the presence of homemaker. PHYSICAL EXAMINATION: VITAL SIGNS: Her blood pressure 124/72, mean arterial pressure of 89, respiratory rate 18, temperature 97.4, pulse rate is 76. The patient is stable. No new episodes happened. No new progression from neurological status. Tolerating good with Keppra. Examination which is unchanged compared with my previous examination. The patient did have rapid response yesterday, been evaluated by first leveler and unresponsiveness associating with the multiple loose bowel movements. However, the patient was easily arousable. No documented seizure activities at that point. EKG was unremarkable. The patient was given IV fluids and vital signs were stable at that time. RECOMMENDATION: Her rapid response, which is probably related to her seizures because of her abnormal electroencephalogram. The patient was given 500 mg of Keppra twice a day, which can be increased to 750 mg twice a day and we will follow her while she is in the hospital. She is tolerating good with antiepileptic drugs. The patient will be followed closely with you. Kyree Hurtado MD
--- NOTE | 2018-06-26 13:50 | CP.PCM.PN ---
Subjective - Date & Time of Evaluation Date of Evaluation: 06/26/18 Time of Evaluation: 21:00 - Subjective Subjective: Pt reports feeling better this Am unremarkable night had a syncopal episode while having bm yesterday reviewed rapid response note Objective - Vital Signs/Intake and Output Vital Signs (last 24 hours): Temp Pulse Resp BP Pulse Ox 98.1 F 89 20 120/70 97 06/26/18 09:10 06/26/18 09:10 06/26/18 09:10 06/26/18 11:03 06/26/18 09:10 - Medications Medications: Current Medications Amlodipine Besylate (Norvasc) 5 mg PO Q12 [facility] Last Admin: 06/26/18 11:02 Dose: 5 mg Aspirin (Aspirin Chewable) 81 mg PO DAILY [facility] Last Admin: 06/26/18 11:02 Dose: 81 mg Clopidogrel Bisulfate (Plavix) 75 mg PO DAILY [facility] Last Admin: 06/26/18 11:02 Dose: 75 mg Docusate Sodium (Colace) 100 mg PO BID [facility] Last Admin: 06/26/18 11:03 Dose: Not Given Enalapril Maleate (Vasotec) 10 mg PO DAILY [facility] Last Admin: 06/26/18 11:03 Dose: 10 mg Enoxaparin Sodium (Lovenox) 60 mg SC Q12H [facility] Last Admin: 06/26/18 01:03 Dose: 60 mg Ergocalciferol (Drisdol 50,000 Intl Units Cap) 1 cap PO QWK [facility] Last Admin: 06/21/18 09:29 Dose: 1 cap Famotidine (Pepcid) 20 mg PO DAILY [facility] Last Admin: 06/26/18 11:03 Dose: 20 mg Sodium Chloride (Sodium Chloride 0.9%) 1,000 mls @ 100 mls/hr IV .Q10H [facility] Last Admin: 06/25/18 22:30 Dose: 100 mls/hr Lactulose (Enulose) 30 gm PO DAILY PRN PRN Reason: Constipation Last Admin: 06/25/18 16:47 Dose: 30 gm Levetiracetam (Keppra) 750 mg PO BID [facility] Last Admin: 06/26/18 11:03 Dose: 750 mg Lidocaine (Lidoderm) 1 ea TD DAILY PRN PRN Reason: Pain, moderate (4-7) Meclizine HCl (Antivert) 25 mg PO Q8 PRN PRN Reason: Dizziness Rosuvastatin Calcium (Crestor) 20 mg PO HS [facility] Last Admin: 06/25/18 22:00 Dose: Not Given Senna/Docusate Sodium (Senokot S 50 Mg-8.6 Mg) 1 tab PO DAILY [facility] Last Admin: 06/26/18 11:03 Dose: Not Given - Labs Labs: 06/25/18 22:02 06/25/18 22:02 PT 12.9 SECONDS (9.7-12.2) H 06/20/18 16:41 INR 1.2 06/20/18 16:41 APTT 40 SECONDS (21-34) H 06/20/18 16:41 - Constitutional Appears: Well, Non-toxic - Eye Exam Eye Exam: Normal appearance - ENT Exam ENT Exam: Mucous Membranes Moist - Respiratory Exam Respiratory Exam: Clear to Ausculation Bilateral - GI/Abdominal Exam GI & Abdominal Exam: Soft. absent: Tenderness (left sided weakness , moslty arm) Assessment and Plan - Assessment and Plan (Free Text) Plan: sp vasal vagal syncopy with balsalba now ok bp stable bronchitis resolving Cva with left sided weakness awating rehab
[2018-06-26 14:03] LABS: BLOOD UREA NITROGEN 17 mg/dL (7-17); CALCIUM 8.8 mg/dl (8.6-10.4); GFR NON-AFRICAN AMERICAN > 60
[2018-06-26 16:49] VITALS: BP 110/71; PULSE 81; TEMP 97.9
--- NOTE | 2018-07-01 12:02 | CP.PCM.DIS ---
Provider - Provider Date of Admission: 06/20/18 18:03 Attending physician: Amber Allison MD Consults: 06/20/18 18:28 Social Work Referral Routine Comment: outpatient rehab placement Physician Instructions: Reason For Exam: outpatient rehab placement 06/21/18 00:10 Case Management Referral Routine Comment: Physician Instructions: Reason For Exam: needs home care Reason for Referral: Discharge Planning 06/21/18 13:41 Neurology Consult Routine Comment: Consulting Provider: Kyree Hurtado Consulting Physician: Kyree Hurtado Reason for Consult: Acute CVA Time Spent in preparation of Discharge (in minutes): 20 Hospital Course - Lab Results Lab Results: Micro Results 06/20/18 17:35 Urine Urine Culture - Final <10,000 CFU/ML. MULTIPLE SPECIES. PROBABLE CONTAMINATION. Most Recent Lab Values WBC 10.4 K/uL (4.8-10.8) 06/25/18 22:02 RBC 4.46 Mil/uL (3.80-5.20) 06/25/18 22:02 Hgb 14.3 g/dL (11.0-16.0) 06/25/18 22:02 Hct 41.7 % (34.0-47.0) 06/25/18 22:02 MCV 93.4 fL (81.0-99.0) 06/25/18 22:02 MCH 31.9 pg (27.0-31.0) H 06/25/18 22:02 MCHC 34.2 g/dL (33.0-37.0) 06/25/18 22:02 RDW 12.8 % (11.5-14.5) 06/25/18 22:02 Plt Count 308 K/uL (130-400) 06/25/18 22:02 MPV 7.7 fL (7.2-11.7) 06/25/18 22:02 Neut % (Auto) 42.3 % (50.0-75.0) L 06/25/18 22:02 Lymph % (Auto) 46.5 % (20.0-40.0) H 06/25/18 22:02 [place] % (Auto) 10.4 % (0.0-10.0) H 06/25/18 22:02 Eos % (Auto) 0.3 % (0.0-4.0) 06/25/18 22:02 Baso % (Auto) 0.5 % (0.0-2.0) 06/25/18 22:02 Neut # (Auto) 4.4 K/uL (1.8-7.0) 06/25/18 22:02 Lymph # (Auto) 4.8 K/uL (1.0-4.3) H 06/25/18 22:02 [place] # (Auto) 1.1 K/uL (0.0-0.8) H 06/25/18 22:02 Eos # (Auto) 0.0 K/uL (0.0-0.7) 06/25/18 22:02 Baso # (Auto) 0.0 K/uL (0.0-0.2) 06/25/18 22:02 PT 12.9 SECONDS (9.7-12.2) H 06/20/18 16:41 INR 1.2 06/20/18 16:41 APTT 40 SECONDS (21-34) H 06/20/18 16:41 Sodium 136 mmol/L (132-148) 06/26/18 12:18 Potassium 4.6 mmol/L (3.6-5.2) 06/26/18 12:18 Chloride 104 mmol/L (98-107) 06/26/18 12:18 Carbon Dioxide 21 mmol/L (22-30) L 06/26/18 12:18 Anion Gap 16 (10-20) 06/26/18 12:18 BUN 17 mg/dL (7-17) 06/26/18 12:18 Creatinine 0.7 mg/dL (0.7-1.2) 06/26/18 12:18 Est GFR ( Amer) > 60 06/26/18 12:18 Est GFR (Non-Af Amer) > 60 06/26/18 12:18 POC Glucose (mg/dL) 94 mg/dL (65-110) 06/26/18 12:40 Random Glucose 93 mg/dL (65-105) 06/26/18 12:18 Calcium 8.8 mg/dl (8.6-10.4) 06/26/18 12:18 Phosphorus 4.5 mg/dL (2.5-4.5) 06/25/18 22:02 Magnesium 2.3 mg/dL (1.6-2.3) 06/25/18 22:02 Total Bilirubin 0.6 mg/dL (0.2-1.3) 06/25/18 22:02 AST 56 U/L (14-36) H D 06/25/18 22:02 ALT 59 U/L (9-52) H D 06/25/18 22:02 Alkaline Phosphatase 88 U/L (38-126) 06/25/18 22:02 Total Creatine Kinase 59 U/L (30-135) 06/20/18 16:41 CK-MB (Mass) 1.22 ng/mL (0.0-3.38) 06/20/18 16:41 Troponin I < 0.0120 ng/mL (0.00-0.120) 06/26/18 01:57 Total Protein 8.0 g/dL (6.3-8.3) 06/25/18 22:02 Albumin 4.3 g/dL (3.5-5.0) 06/25/18 22:02 Globulin 3.7 gm/dL (2.2-3.9) 06/25/18 22:02 Albumin/Globulin Ratio 1.1 (1.0-2.1) 06/25/18 22:02 Triglycerides 95 mg/dL (0-149) D 06/22/18 13:53 Cholesterol 189 mg/dL (0-199) 06/22/18 13:53 LDL Cholesterol Direct 124 mg/dL (0-129) 06/22/18 13:53 HDL Cholesterol 38 mg/dL (30-70) 06/22/18 13:53 TSH 3rd Generation 0.14 mIU/L (0.46-4.68) L 06/26/18 12:18 Urine Color Straw (YELLOW) 06/20/18 17:35 Urine Clarity Clear (Clear) 06/20/18 17:35 Urine pH 6.0 (5.0-8.0) 06/20/18 17:35 Ur Specific [place] 1.004 (1.003-1.030) 06/20/18 17:35 Urine Protein Negative mg/dL (NEGATIVE) 06/20/18 17:35 Urine Glucose (UA) Normal mg/dL (Normal) 06/20/18 17:35 Urine Ketones Negative mg/dL (NEGATIVE) 06/20/18 17:35 Urine Blood 1+ (NEGATIVE) H 06/20/18 17:35 Urine Nitrate Negative (NEGATIVE) 06/20/18 17:35 Urine Bilirubin Negative (NEGATIVE) 06/20/18 17:35 Urine Urobilinogen Normal mg/dL (0.2-1.0) 06/20/18 17:35 Ur Leukocyte Esterase Neg Vinnie/uL (Negative) 06/20/18 17:35 Urine WBC (Auto) 1 /hpf (0-5) 06/20/18 17:35 Urine RBC (Auto) < 1 /hpf (0-3) 06/20/18 17:35 Ur Squamous Epith Cells < 1 /hpf (0-5) 06/20/18 17:35 - Hospital Course Hospital Course: Pt was admitted with left sided weakness MRi+ acute cva pt started on antiplatelets statin bp meds pt to go to rehab Discharge Exam - Head Exam Head Exam: ATRAUMATIC, NORMAL INSPECTION, NORMOCEPHALIC Discharge Plan - Follow Up Plan Disposition: REHAB FACILITY/REHAB UNIT Instructions: Heart Healthy Diet, Preventing Falls in the Older Adult, High Blood Pressure (DC), Low Salt Diet, Preventing Falls Additional Instructions: Please follow up with Dr. Allison office upon discharge from [facility] Continue medication as per med. rec Referrals: Amber Allison MD [Staff Provider] -
== END 2018-06-26 22:40 | DRG 65 ==
LOC: C.ER 16:08 → C.3T 18:03 → C.6T 06-21 20:25
PROVIDERS: ADMIT Internal Medicine; ATTEND Internal Medicine
DX: I63.9 Cerebral infarction, unspecified (principal); G81.94 Hemiplegia, unspecified affecting left nondominant side; I10 Essential (primary) hypertension; K59.00 Constipation, unspecified; R29.6 Repeated falls; E11.51 Type 2 diabetes mellitus with diabetic peripheral angiopathy without gangrene; J40 Bronchitis, not specified as acute or chronic; M65.20 Calcific tendinitis, unspecified site; I67.2 Cerebral atherosclerosis; M19.90 Unspecified osteoarthritis, unspecified site; Z79.02 Long term (current) use of antithrombotics/antiplatelets; E78.00 Pure hypercholesterolemia, unspecified

== ENCOUNTER 2018-07-28 10:03 | Outpatient (CLI) | payer MEDICARE, OTHER | END 2018-07-31 08:51 | disposition home or self-care (01) | LOC: C.MRIC 10:03 ==